=== PATIENT | female | born 1950 | race Caucasian/White ===

== ENCOUNTER 2017-04-27 08:50 | Day surgery (SDC) | payer MEDICARE, OTHER ==
[2017-04-22 11:35] VITALS: BMI 27.4
[~2017-04-27 08:50] MED LIST: LACTATED RINGERS 1,000 ML IV SCH; MOXIFLOXACIN HCL 0.5% DROPS 3 ML BTL OP ONE; TETRACAINE 0.5% OPHTH (PF) DROPS 4 ML BTL OP ONE; TIMOLOL 0.5% OPHTH SOLN (PF) 0.2 ML DROPERETTE OP ONE
[2017-04-27 09:41] VITALS: RESP 16; TEMP 97.6
[2017-04-27] MEDS: PHENYLEPHRINE 2.5% OPHTH DRP 2ML OP NR ×3 (09:53→10:08)
[2017-04-27] MEDS: CYCLOPENTOLATE 1% OPHTH SOLN 2 ML BTL OP ONE ×3 (09:56→10:10)
[2017-04-27] MEDS ORDERED: LIDOCAINE 1% 20 ML VIAL (10MG/ML) FOR IV START INTRADERMA ONE (09:57)
[2017-04-27 10:00] LABS: Glucose,Whole Blood 109 mg/dL (75-99)
[2017-04-27] MEDS ORDERED: ONDANSETRON 4 MG/2 ML VIAL ONE (10:45)
[2017-04-27] MEDS ORDERED: fentaNYL (PF) 50 MCG/ML 2 ML AMP ONE (10:45)
[2017-04-27] MEDS ORDERED: BALANCED SALT IRRIG SOLN COMB2 15 ML IRRIG.SOLN IRRIGATION ONE (10:55)
[2017-04-27] MEDS ORDERED: LIDOCAINE 1% (PF) 10MG/ML VIAL MISCELLANE ONE (10:56)
[2017-04-27] MEDS ORDERED: DUOVISC KIT (GREEN BOX) INTRAOCULA ONE (10:56)
[2017-04-27] MEDS ORDERED: TRYPAN BLUE 0.06% SYRINGE 0.5 ML SYRINGE INTRAOCULA ONE (10:57)
[2017-04-27] MEDS ORDERED: EPINEPHrine (PF) 0.3 ML in BALANCED SALT IRRIG SOLN COMB2 500 ML IRRIGATION ONE (10:58)
--- NOTE | 2017-04-27 11:25 | P.OP ---
Date of Procedure: 04/27/17 Preoperative Diagnosis: mature cataract Postoperative Diagnosis: same Procedure(s) Performed: PIOL, OS Implants: PCB00 18.50 Anesthesia: MAC Surgeon: Tavo Sales Estimated Blood Loss (ml): 0 Pathology: none sent Condition: stable Disposition: same day Indications for Procedure: blurry vision Operative Findings: No complications
[2017-04-27 11:33] LABS: Glucose,Whole Blood 103 mg/dL (75-99)
[2017-04-27 12:02] VITALS: BP 144/70; PULSE 65
--- NOTE | 2017-04-28 11:42 | OP ---
OPERATIVE REPORT DATE OF SURGERY: April 27, 2017. PROCEDURE: Phacoemulsification of cataract and intraocular lens implant of the left eye. PREOPERATIVE DIAGNOSIS: Mature cataract. POSTOPERATIVE DIAGNOSIS: Mature cataract. SURGEON: Dr. Tavo Sales. ANESTHESIA: Topical. ESTIMATED BLOOD LOSS: None. SPECIMEN TAKEN: None. NARRATIVE: After obtaining the appropriate consent, the patient was brought to the operating room. There she was placed on cardiac monitoring, prepped and draped in the usual sterile manner. She was approached from her left temporal side and at the 5 o'clock position a 1.1 mm stab blade was used to create a paracentesis port. Through this opening 1% Xylocaine MPF 50 50 mix of balanced salt solution was injected into the anterior chamber. This was followed by placement of a small air bubble into the anterior chamber. Tri hackett blue was then instilled into the anterior chamber and left in place for 2 minutes. This was irrigated away and the anterior chamber was then stabilized with Viscoat. For the temporal position at the 3 o'clock position on the eye. A 2.5 mm keratome was used to create a self-sealing corneal flap incision in a lying Jaime fashion. A cystotome was introduced to begin a continuous tear capsulorrhexis which was then completed using the Utrata forceps. Hydrodissection and hydrodelineation of the lens was accomplished with balanced salt solution. Phacoemulsification of the lens was accomplished in 2 minutes, 4 seconds at 20% power. Additional Xylocaine MPF was instilled in the anterior chamber. This was followed by removal of cortical material under irrigation and aspiration. Careful polishing was accomplished to clear the posterior capsule. Provisc was then used to stabilize the anterior chamber and an RORY PCB00 18.5 diopter posterior chamber intraocular lens was then injected into the capsular bag without difficulty. Remaining viscoelastic from in and around the intra- ocular lens as well as the anterior chamber was removed. The eye was brought to normal intraocular pressures through the paracentesis port with balanced salt solution. Care was taken to ensure a watertight integrity from both the temporal as well as paracentesis ports. She then received 2 drops of 0.5% timolol followed by 2 drops of Vigamox was then lightly patched and shielded in the usual manner. There were no complications from the procedure. She tolerated the procedure well, was returned to outpatient recovery in good condition. MMODL / IJN: [id number] /
== END 2017-04-27 12:22 | disposition home or self-care (01) ==
LOC: OR 08:50
PROVIDERS: ATTEND Ophthalmology
DX: H25.13 Age-related nuclear cataract, bilateral (principal); E11.3293 Type 2 diabetes mellitus with mild nonproliferative diabetic retinopathy without macular edema, bilateral; Z79.4 Long term (current) use of insulin; H25.043 Posterior subcapsular polar age-related cataract, bilateral; F32.9 Major depressive disorder, single episode, unspecified; I11.9 Hypertensive heart disease without heart failure; M19.90 Unspecified osteoarthritis, unspecified site; K21.9 Gastro-esophageal reflux disease without esophagitis; Z79.82 Long term (current) use of aspirin; Z79.1 Long term (current) use of non-steroidal anti-inflammatories (NSAID); Z79.899 Other long term (current) drug therapy
CPT/HCPCS: 66984; C1780; J2405; J0171; J3010; J2001

== ENCOUNTER → 2018-06-08 | Outpatient (CLI) | payer MEDICARE ==
[2018-06-08 16:49] VITALS: BP 148/67; PULSE 71; RESP 20; TEMP 96.1; BMI 34.7
--- NOTE | 2018-06-08 17:15 | P.GSHP ---
History of Present Illness H&P Date: 06/08/18 Chief Complaint: right breast core biopsy positive for cancer The patient noted her right nipple was cracked and bleeding for about one year. She was prescribed antibiotic creams on multiple occasions without resolution of the problem. She couldn't see because she had difficulty with vision, and recently she underwent cataract surgery and then noticed what her nipple looked like and then sought a mammogram. The mammogram was noted to have a 1.8 cm lesion behind the nipple. The patient states the whole breast feels hard at this time. Patient has some pain in the breast. Family History: 1. sister: breast cancer in her 30's/ recently diagnosed with endometrial cancer 2. paternal grandmother: breast cancer Hormonal History: menarche: 11 : 2, 2 children 1 , first born at age of 31, breast feed: no menopause: 42 BCP:20 years hormones: no Past Surgical History: 1. cataract surgery 2. tualigation Past Medical Hsitory: 1. diabetes 2. hyperlipidemea 3. IBS Social History: smoke: no alcohol: no drugs: no - Constitutional Constitutional: Reports sweats - EENT Comment: cataracts bilateral Ears: bilateral: tinnitus, deny: decreased hearing Ears, nose, mouth and throat: Denies headache, Denies sore throat - Breasts Breasts: bilateral: as per HPI - Cardiovascular Cardiovascular: Denies chest pain, Denies shortness of breath - Respiratory Respiratory: Denies cough, Denies 7 - Gastrointestinal Comment: IBS - Genitourinary (Female) Genitourinary: Denies dysuria, Denies hematuria - Menstruation Menstruation: Reports postmenopausal - Musculoskeletal Comment: back pain arthritis - Integumentary Integumentary: Denies pruritus, Denies rash - Neurological Neurological: Denies numbness, Denies weakness - Psychiatric Psychiatric: Reports anxiety, Reports depression - Endocrine Comment: diabetes - Hematologic/Lymphatic Comment: aspirin - Allergic/Immunologic Allergic/Immunologic: Reports seasonal allergies Past Medical History Past Medical History: Diabetes Mellitus, Hyperlipidemia Additional Past Medical History / Comment(s): IBS, History of Any Multi-Drug Resistant Organisms: None Reported Past Surgical History: Tubal Ligation Additional Past Surgical History / Comment(s): left cataract 04/27/17 Past Anesthesia/Blood Transfusion Reactions: Postoperative Nausea & Vomiting ( PONV) Smoking Status: Never smoker - Past Family History Mother Family Medical History: No Reported History Medications and Allergies Home Medications Medication Instructions Recorded Confirmed Type Atorvastatin [Lipitor] 40 mg PO HS 04/22/17 05/30/17 History DULoxetine HCL [Cymbalta] 60 mg PO DAILY 04/22/17 05/30/17 History Dicyclomine [Bentyl] 10 mg PO QID 04/22/17 05/30/17 History Lisinopril [Zestril] 20 mg PO HS 04/22/17 05/30/17 History Montelukast [Singulair] 10 mg PO DAILY PRN 04/22/17 05/30/17 History Ranitidine HCl [Zantac] 150 mg PO HS 04/22/17 05/30/17 History busPIRone HCl [Buspar] 15 mg PO TID 04/22/17 05/30/17 History Aspirin [Adult Low Dose Aspirin EC] 81 mg PO DAILY 05/30/17 05/30/17 History Insulin Glargine [Lantus] 30 unit SQ HS 05/30/17 05/30/17 History Insulin Glargine [Lantus] 36 unit SQ DAILY 05/30/17 05/30/17 History glipiZIDE [Glucotrol] 5 mg PO 1200 05/30/17 05/30/17 History Allergies Allergy/AdvReac Type Severity Reaction Status Date / Time No Known Allergies Allergy Verified 06/01/17 09:20 Surgical - Exam - General well developed, moderate distress, obese - Eyes normal ocular movement - ENT normal nares, poor longterm - Neck no masses, trachea midline - Respiratory normal respiratory effort, clear to auscultation absent: dullness, wheezing, rales - Cardiovascular Rhythm: regular Heart Sounds: normal: S1, S2 - Abdomen Abdomen: soft, non tender, no guarding, no rigid, no rebound - Integumentary good turgor - Neurologic no disoriented, no combative - Musculoskeletal kyphosis normal gait - Psychiatric oriented to time, oriented to person, oriented to place, speech is normal, memory intact breast exam: Right breast examination: The right nipple is inverted and withdrawn into an area of firmness to the nipple areolar complex. The firmness is approximately 4 cm x 3 cm in size however some of this may just be induration. Additionally at there are some skin lesions at the lateral aspect of the nipple areolar complex which are somewhat suspicious for disease to the skin. Right axilla: No adenopathy of concern Left breast: Multi-positional exam no dominant masses or nodules of concern Left axilla: No adenopathy of concern Results Mammogram report reviewed the actual films are not yet available Assessment and Plan Assessment: Impression: 1. Decreased vision requiring cataract surgery 2. Right breast mass/nipple inversion/positive invasive ductal carcinoma 2. Possible skin involvement of the malignancy Plan: 1. Skin biopsy 2. Appointment with medical oncology 3. Obtain radiographs of the breast to reviewed 4. Right breast carcinoma 5. present at tumor board I discussed the pathology with the patient and her daughter. I'm uncertain as to the actual size of the tumor and have requested that the radiographs be obtained for review. Her case will be discussed at tumor board. Additionally there is a skin lesion in the right breast for which biopsy has been recommended to rule out metastatic disease to the skin. Further recommendation to follow all of this information. Cc: Freddy
== END | disposition home or self-care (01) ==
LOC: WWCWWP 16:28
PROVIDERS: ATTEND Surgery
DX: Z53.9 Procedure and treatment not carried out, unspecified reason (principal)

== ENCOUNTER → 2018-07-11 | Day surgery (SDC) | payer MEDICARE ==
[2018-07-07 15:36] VITALS: BMI 32.0
[~2018-07-11] MED LIST changes: +DEXAMETHASONE SOD PHOS (MDV) 100 MG/10 ML VIAL IVP ONE; +HEPARIN SODIUM,PORCINE 5,000 UNIT/ML 1 ML VIAL SQ ONE; +LACTATED RINGERS 1,000 ML IV ONE; -LACTATED RINGERS 1,000 ML IV SCH; +LIDOCAINE 1% INJ 10MG/ML (20 ML MDV) SQ ONE; +MIDAZOLAM 2 MG/2 ML VIAL ONE; -MOXIFLOXACIN HCL 0.5% DROPS 3 ML BTL OP ONE; +ONDANSETRON 4 MG/2 ML VIAL IVP ONE; +PROPOFOL 10 MG/ML 20 ML VIAL IV ONE; +Pre Op ABX Message 1 EACH MISC MISCELLANE ONE; +SCOPOLAMINE 1.5MG/72HR PATCH TRANSDERM ONE; +SCOPOLAMINE 1.5MG/72HR PATCH TRANSDERM STA; -TETRACAINE 0.5% OPHTH (PF) DROPS 4 ML BTL OP ONE; -TIMOLOL 0.5% OPHTH SOLN (PF) 0.2 ML DROPERETTE OP ONE; +fentaNYL (PF) 50 MCG/ML 2 ML AMP ONE
[2018-07-11 12:36] LABS: Glucose,Whole Blood 157 mg/dL (75-99)
[2018-07-11 12:45] VITALS: TEMP 98.5
--- NOTE | 2018-07-11 13:27 | P.OP ---
Date of Procedure: 07/11/18 Preoperative Diagnosis: Skin lesions of concern for metastatic disease Postoperative Diagnosis: Same Procedure(s) Performed: Wide excision of skin lesions Anesthesia: MAC, local Surgeon: Khushboo Evans Estimated Blood Loss (ml): 3 IV fluids (ml): 100 Pathology: other (Skin with the lesion rule out metastatic disease) Condition: stable Disposition: same day Indications for Procedure: 68-year-old white female with biopsy-proven breast carcinoma with skin changes suspicious for metastatic disease in the right breast Operative Findings: Skin lesions right breast Description of Procedure: I'll is a 68-year-old white female status post core biopsy of the lesion in the right breast positive for invasive ductal carcinoma. The patient has several skin lesions suspicious for metastatic disease to the skin. Following sedation the right breast was prepped and draped in a sterile fashion. One percent lidocaine was used to anesthetize the area of the skin lesions of concern. These are in the lateral aspect of the right breast. Wide excision of the area was performed. This was carried through the skin into the subcutaneous tissue. Hemostasis was attained using electrocautery device. The length of the area was approximately 3-1/2 cm. The specimen was sent to pathology for evaluation. The skin was closed using a 4-0 Monocryl. Nylon sutures were placed following this. The patient tolerated the procedure in stable condition. All instrument and sponge counts were correct at the end of the case.
--- NOTE | 2018-07-11 13:29 | P.DS ---
Providers Attending physician: Khushboo Evans Primary care physician: Joshua Flores Plan - Discharge Summary Discharge Rx Participant: Yes New Discharge Prescriptions: No Action Montelukast [Singulair] 10 mg PO HS busPIRone HCl [Buspar] 15 mg PO TID Lisinopril [Zestril] 20 mg PO DAILY Dicyclomine [Bentyl] 10 mg PO QID DULoxetine HCL [Cymbalta] 60 mg PO DAILY Ranitidine HCl [Zantac] 150 mg PO HS Atorvastatin [Lipitor] 40 mg PO DAILY glipiZIDE [Glucotrol] 5 mg PO 1200 Insulin Lispro [humaLOG Kwikpen] 26 unit SQ 0600,1800 traZODone HCL 150 mg PO HS Discharge Medication List Atorvastatin [Lipitor] 40 mg PO DAILY 04/22/17 [History] DULoxetine HCL [Cymbalta] 60 mg PO DAILY 04/22/17 [History] Dicyclomine [Bentyl] 10 mg PO QID 04/22/17 [History] Lisinopril [Zestril] 20 mg PO DAILY 04/22/17 [History] Montelukast [Singulair] 10 mg PO HS 04/22/17 [History] Ranitidine HCl [Zantac] 150 mg PO HS 04/22/17 [History] busPIRone HCl [Buspar] 15 mg PO TID 04/22/17 [History] glipiZIDE [Glucotrol] 5 mg PO 1200 05/30/17 [History] Insulin Lispro [humaLOG Kwikpen] 26 unit SQ 0600,1800 06/08/18 [History] traZODone HCL 150 mg PO HS 07/07/18 [History] Follow up Appointment(s)/Referral(s): Khushboo Evans MD [STAFF PHYSICIAN] - 1 Week Patient Instructions/Handouts: *Surgery [facility] - Scopalamine Patch Instructions Activity/Diet/Wound Care/Special Instructions: do not drive today may shower after 48 hours Discharge Disposition: HOME SELF-CARE
[2018-07-11 13:38] VITALS: RESP 16
[2018-07-11 13:56] LABS: Glucose,Whole Blood 159 mg/dL (75-99)
[2018-07-11 14:03] VITALS: BP 120/52; PULSE 70
== END | disposition home or self-care (01) ==
LOC: OR 12:07
PROVIDERS: ATTEND Surgery
DX: C50.911 Malignant neoplasm of unspecified site of right female breast (principal); Z80.3 Family history of malignant neoplasm of breast; I10 Essential (primary) hypertension; E78.49 Other hyperlipidemia; E11.9 Type 2 diabetes mellitus without complications; Z80.49 Family history of malignant neoplasm of other genital organs; E78.5 Hyperlipidemia, unspecified; F41.9 Anxiety disorder, unspecified; F32.9 Major depressive disorder, single episode, unspecified; K21.9 Gastro-esophageal reflux disease without esophagitis; Z79.4 Long term (current) use of insulin; Z79.899 Other long term (current) drug therapy; Z79.82 Long term (current) use of aspirin
CPT/HCPCS: 19120; 88305; 88342; 88341; J2250; J1644; J2405; J2001; J3010; J1100; J2704

== ENCOUNTER → 2018-07-21 | Outpatient (CLI) | payer MEDICARE ==
[2018-07-21 16:43] VITALS: BP 124/73; PULSE 78; RESP 16; TEMP 97.5; BMI 36.0
--- NOTE | 2018-07-21 17:31 | P.PN ---
Progress Note - Text Progress Note Date: 07/21/18 Edyta is a 68-year-old white female who was diagnosed with an invasive right breast cancer from her core biopsy on 1230 118. She also had low-grade DCIS. The patient had skin lesions of concern and underwent a biopsy of the skin lesions on 120 219. These were also positive for well-differentiated ductal breast carcinoma. The patient is scheduled for PET scan tomorrow. The patient is being scheduled for an appointment with medical oncology. She is brought to the office today by her sister who relates that she has been diagnosed with a limb-girdle muscular dystrophy. She tells us that this is a genetic condition and that it may be necessary for Edyta to be tested for this as well. Edyta has not been tested for this. Physical exam: Incision clean and dry, sutures removed Steri-Strips applied Impression; 1. Right breast invasive carcinoma [id number]/SOLEDAD- STAGE IIIB Plan: 1. PET scan scheduled for tomorrow 2. Appointment with medical oncology 3. Follow-up. 2 weeks Cc:
== END ==
LOC: WWCWWP 16:22
PROVIDERS: ATTEND Surgery
DX: Z53.9 Procedure and treatment not carried out, unspecified reason (principal)

== ENCOUNTER → 2018-07-22 | Outpatient (CLI) | payer MEDICARE ==
--- NOTE | 2018-07-22 14:26 | PE ---
EXAMINATION TYPE: PET CT fusion skull to thigh DATE OF EXAM: 07/22/2018 COMPARISON: Outside mammogram April 12, 2018 and outside ultrasound guided core biopsy May 17, 2018 HISTORY: Right-sided breast cancer initial staging study after biopsy May 17, 2018. TECHNIQUE: Following the intravenous administration of 12.03 mCi of F-18 FDG, whole body images are performed from the skull base to the midthigh. Images are reviewed on the computer in the coronal, a xial, and sagittal planes. Reconstructed rotating images are created on independent workstation and reviewed on the computer. A noncontrast CT is performed in conjunction with the PET scan. SCAN: Outside mammogram April 12, 2018 FINDINGS: SKULL BASE AND NECK: No suspicious hypermetabolic uptake is present. Mild symmetric uptake at level of vocal cords is felt to reflect product of phonation. CHEST, MEDIASTINUM, AND HILAR REGION: Corresponding to mammogram and ultrasound there is slight hyper metabolic focus with nipple inversion, max SUV 2.42 subareolar region right breast axial image 98. No additional hypermetabolic masses in either breast are identified. No concerning axillary adenopathy is seen. Remainder thorax shows no suspicious hypermetabolic uptake. ABDOMEN AND PELVIS: No suspicious hypermetabolic uptake is seen in the abdomen or pelvis. OSSEOUS STRUCTURES: No suspicious hypermetabolic uptake in osseous structures is present. OTHER CT: Moderate coronary artery calcification is present which is noted marker for coronary artery disease. Rim calcified gallbladder or porcelain type gallbladder is noted. Surgical referral advised as there is increased risk for gallbladder carcinoma in such patient. 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 Some areas of focal cortic al thinning in the left kidney are present. There is low dense 2.6 cm left adrenal mass Hounsfield units less than 10 consistent with benign lipi d rich adenoma. There is exophytic calcified right subserosal fibroid felt present Moderate calcified plaque of aorta extends into branch vessels, aorta is overall small caliber. Measu ring 5.7 x 5.1 cm axial image 205. Slight grade 1 anterolisthesis L3 on L4 is noted. IMPRESSION: Poor visualization of biopsy-proven subareolar malignancy right breast. No metastatic mal ignancy is evident.
== END | disposition home or self-care (01) ==
LOC: RADPETMAIN 09:55
PROVIDERS: ATTEND Surgery
DX: C50.111 Malignant neoplasm of central portion of right female breast (principal)
CPT/HCPCS: 78815; A9552

== ENCOUNTER → 2018-08-25 | Outpatient (CLI) | payer MEDICARE ==
[2018-08-25 13:34] VITALS: BP 139/69; PULSE 69; RESP 18; TEMP 97.8; BMI 36.3
--- NOTE | 2018-08-25 13:48 | P.PN ---
Subjective Progress Note Date: 08/25/18 Principal diagnosis: right breast cancer Edyta is a 68-year-old white female who was diagnosed with invasive right breast cancer from a core biopsy in [id number]. The patient also had skin lesions of concern and underwent a skin biopsy on . The skin biopsy was positive f or well-differentiated ductal breast cancer. The patient had a PET scan performed which did not show evidence of metastatic disease. The patient also had a BRCA1 test performed and we are awaiting results of that test. The patient was seen by medical oncology and told that she was ready for surgery. The patient had noted her right nipple had become cracked and was bleeding for approximately a year. She was prescribed antibiotic cream some multiple occasions without resolution of the problem. She couldn't see because she has difficulty with vision and recently underwent cataract surgery. Following the Surgery she noticed that her nipple looked abnormal and at that time a mammogram was performed. The mammogram was noted to have a 1.8 cm lesion behind the nipple. The patient states the whole breast then began to fill heart. At that point the patient had been seen core biopsy was done and skin biopsy as stated. Additionally appointment with medical oncology was made and at this time we are waiting BRCA1 test results. If BRCA1 is positive then the recommendation is for bilateral mastectomy. Family history: 1. Sr.: Breast cancer in her 30s recently diagnosed with endometrial cancer 2. Paternal grandmother: Breast cancer Hormonal history: Menarche: 11 Diagnosis: 2, 2 children one this point at the age of 31 did not breast- feed. Menopause: 42 Postoperative control past: 20 years Hormones: Negative Past surgical history: 1. Cataract surgery 2. Tubal ligation Past medical history 1. Diabetes 2. Hyperlipidemia 3. Irritable bowel syndrome Social history: Smoke: Negative Alcohol: Negative Drugs: Negative Review of systems: HEENT: Bilateral cataracts surgery Uterus: Bilateral tinnitus Breasts: As stated in HPI Cardiovascular: Negative Respiratory: Negative GI: Irritable bowel syndrome : Negative Menstruation: Postmenopausal Musculoskeletal: Back pain Integument: Positive biopsy of the skin for cancer Neurologic: Denies numbness or weakness Psychiatric: Negative Hematologic: Patient used to take aspirin Objective - Vital Signs Vital signs: Intake & Output 08/24/18 08/25/18 08/25/18 18:59 06:59 18:59 Weight 90.265 kg - Exam BMI 36.4 - Constitutional General appearance: Present: obese - EENT Eyes: Present: EOMI ENT: Present: hearing grossly normal - Neck Neck: Present: normal ROM - Respiratory Respiratory: - Cardiovascular Rhythm: regular Heart sounds: - Gastrointestinal General gastrointestinal: Present: soft - Integumentary Integumentary Comment(s): skin lesions right breast Integumentary: Present: normal turgor - Musculoskeletal Musculoskeletal: Present: gait normal - Psychiatric Psychiatric: Present: A&O x's 3, appropriate affect, intact judgment & insight - Additional findings Additional findings: Right breast: Enlarged mass posterior to the nipple causing nipple retraction, biopsy proven invasive ductal carcinoma as well as some skin changes which have been biopsied and a positive for of skin involvement Right axilla: Enlarged right axillary nodes Left breast: Multiple positional exam no dominant masses or nodules of concern Left axilla: No adenopathy of concern Assessment and Plan Assessment: Impression: 1. [id number] BX positive HER-2 negative grade 1 right breast cancer 2. Diabetes 3. irritable bowel syndrome 4 hyperlipidemia Plan: 1. We are awaiting BRCA testing 2. Right mastectomy with axillary node dissection patient is not felt to be a candidate for preoperative neoadjuvant chemotherapy as per medical oncology 3. Medical clearance CC: DR. Flores
== END | disposition home or self-care (01) ==
LOC: WWCWWP 13:20
PROVIDERS: ATTEND Surgery
DX: Z53.9 Procedure and treatment not carried out, unspecified reason (principal)

== ENCOUNTER 2018-09-26 06:28 | Day surgery (SDC) | payer MEDICARE ==
--- NOTE | 2018-09-22 18:00 | P.PN ---
Subjective Progress Note Date: 09/22/18 Principal diagnosis: Invasive right breast cancer Edyta is a 68-year-old white female who was diagnosed with an invasive right breast cancer from a core biopsy in May 2018. The patient also had skin lesions of concern and it went a skin biopsy on 07/11/2018. The skin biopsy was positive for well-differentiated ductal breast cancer. The patient had a PET scan performed which did not show any evidence of metastatic disease. The patient also had a BRCA1 test performed which was negative. The patient was seen by medical oncology and it was felt that there was no benefit to neoadjuvant chemotherapy and wished to proceed with a mastectomy. The patient had noted her right nipple had become cracked and was bleeding for approximately a year prior to being seen. She had been prescribed antibiotic ointment without resolution of the problem. She states she couldn't see because she had difficulty with her vision and recently underwent cataract surgery. Following the surgery she knows that her nipple looked more abnormal and at that time a mammogram was performed. The mammogram was noted to have a 1.8 cm lesion behind the nipple. The patient states her breast and began to fill from. That point the patient had a core biopsy and the diagnosis of the br east cancer was made. Family history: 1. Sr.: Breast cancer in her 30s recently diagnosed with endometrial cancer 2. Paternal grandmother: Breast cancer Hormonal history: Menarche: 11 : 2, 2 children Menopause: 42 Past surgical history: 1. Cataract surgery 2. Tubal ligation Past medical history: Diabetes Hyperlipidemia Irritable bowel syndrome Social history: Smoking: Negative Alcohol: Negative Drugs: Negative Review of systems: HEENT: Bilateral cataracts surgery Lungs: Negative Heart: Negative GI: Irritable bowel syndrome : Negative Musculoskeletal: Back pain Breasts: As per HPI Objective - Constitutional Constitutional Comment(s): BMI 37.7 General appearance: Present: obese - EENT Eyes: Present: EOMI ENT: Present: hearing grossly normal - Neck Neck: Present: normal ROM - Respiratory Respiratory: bilateral: CTA - Cardiovascular Rhythm: regular Heart sounds: normal: S1, S2 - Gastrointestinal General gastrointestinal: Present: soft - Integumentary Integumentary Comment(s): Skin lesions right breast - Musculoskeletal Musculoskeletal: Present: gait normal - Psychiatric Psychiatric: Present: A&O x's 3, appropriate affect, intact judgment & insight - Additional findings Additional findings: Breast examination: Right breast: Enlarged mass posterior to the nipple causing nipple retraction, biopsy proven ductal carcinoma as well as skin changes which have been biopsied and positive for skin cancer Right axilla: Enlarged right axillary nodes Left breast: Multi-positional exam no dominant masses or nodules of concern Left axilla no adenopathy of concern Assessment and Plan Assessment: Impression/plan: 1. T4 N1 M0 ER CO positive HER-2/teena negative grade 1 right breast cancer 2. Diabetes 3. Irritable bowel syndrome 4. Hyperlipidemia 5. BRCA1 testing negative 6. Positive family history of cancer 7. At this time the patient has no evidence of metastatic disease via PET scan A long discussion with the patient and her family regarding the need for mastectomy and sentinel node biopsy possible axillary node dissection. The patient also wishes to undergo a left mastectomy. She is aware that I do not believe this is any tumor in the left breast at this time and despite this she wishes a left breast mastectomy. The patient is not interested in reconstruction. She is offered consultation with plastic surgery and has refused at this time. Plan: 1. Right breast mastectomy with sentinel node biopsy possible axillary node dissection 2. Left mastectomy CC: Dr. Flores
[~2018-09-26 06:28] MED LIST changes: -DEXAMETHASONE SOD PHOS (MDV) 100 MG/10 ML VIAL IVP ONE; +DEXAMETHASONE SOD PHOSPHATE 10 MG/ML 1 ML VIAL IV ONE; -LACTATED RINGERS 1,000 ML IV ONE; +LACTATED RINGERS 1,000 ML IV SCH; +LIDOCAINE 1% 20 ML VIAL (10MG/ML) FOR IV START INTRADERMA PRN; -LIDOCAINE 1% INJ 10MG/ML (20 ML MDV) SQ ONE; +MIDAZOLAM (PF) 2 MG/2 ML VIAL IV PRN; -MIDAZOLAM 2 MG/2 ML VIAL ONE; -PROPOFOL 10 MG/ML 20 ML VIAL IV ONE; -SCOPOLAMINE 1.5MG/72HR PATCH TRANSDERM ONE; -SCOPOLAMINE 1.5MG/72HR PATCH TRANSDERM STA; +fentaNYL (PF) 50 MCG/ML 2 ML AMP IV PRN; -fentaNYL (PF) 50 MCG/ML 2 ML AMP ONE
[2018-09-26] MEDS ORDERED: ALPRAZolam 0.25 MG TAB PO ONE (07:15)
[2018-09-26 07:34] LABS: Glucose,Whole Blood 205 mg/dL (75-99)
--- NOTE | 2018-09-26 08:08 | NM ---
EXAMINATION TYPE: NM sentinel node injection DATE OF EXAM: 09/26/2018 COMPARISON: NONE HISTORY: Right breast cancer TECHNIQUE AND FINDINGS: The procedure of sentinel lymph node injection was explained to the patient. The benefits, alternatives, and risks were discussed. An informed consent was then obtained. Overlying skin is cleaned with sterile alcohol. Following this, 562 uCi Tc99m Tilmanocept was inject ed in the upper outer aspect of the 9 o'clock position nipple intradermally. The patient tolerated the procedure well without any immediate complication. The patient was kept in the radiology department for short stay after the procedure and then taken to surgery for surgical p rocedure what is presumed intraoperative gamma probe will be used for sentinel lymph node detection. IMPRESSION: Right breast radiotracer injection for sentinel node localization as above.
[2018-09-26] MEDS ORDERED: PROPOFOL 10 MG/ML 20 ML VIAL IV ONE (09:01)
[2018-09-26] MEDS ORDERED: HYDROmorphone (PF) 1 MG/ML ONE (09:01)
[2018-09-26] MEDS ORDERED: LABETALOL 5 MG/ML VIAL MDV ONE (09:01)
[2018-09-26] MEDS ORDERED: LIDOCAINE 1% INJ 10MG/ML (20 ML MDV) ONE (09:01)
[2018-09-26] MEDS ORDERED: fentaNYL (PF) 50 MCG/ML 2 ML AMP ONE (09:01)
[2018-09-26] MEDS ORDERED: MIDAZOLAM 2 MG/2 ML VIAL ONE (09:01)
[2018-09-26] MEDS ORDERED: SUCCINYLCHOLINE CHLORIDE 100 MG/5 ML SYR IV ONE (09:01)
[2018-09-26] MEDS ORDERED: GLYCOPYRROLATE 0.2 MG/ML 2 ML VIAL ONE (09:01)
[2018-09-26] MEDS ORDERED: HEPARIN SODIUM,PORCINE 5,000 UNIT/ML 1 ML VIAL SQ ONE (09:13)
--- NOTE | 2018-09-26 09:17 | P.NAPBC ---
[facility] - [facility] Was patient's case review presented at [facility] tumor board? If no, comment.: Yes Was patient's pathology reviewed at [facility]? If no, comment.: Yes Was breast conservation surgery offered? If no, comment.: No (advanced disease right breast) Was sentinel node biopsy offered? If no, comment.: Yes Was diagnosis confirmed by percutaneous core biopsy? If no, comment.: Yes If mastectomy patient, was a preop referral to a reconstructive surgeon offered?: Yes (offered patient declined) [facility] Comments: patient adamant about bilateral mastectomy, told will not improve prognosis, or survival, patient understands and still wants bilateral mastectomy Clinical Stage: [id number]/AZ+ Her2/Cleopatra-, Grade1
[2018-09-26] MEDS ORDERED: SODIUM CHLORIDE 0.9% 50 ML with ceFAZolin (PMX-bag) 2,000 MG IV ONE ×2 (09:31)
[2018-09-26] MEDS ORDERED: LACTATED RINGERS 1,000 ML IV ONE ×2 (09:55→15:00)
[2018-09-26] MEDS ORDERED: ONDANSETRON 4 MG/2 ML VIAL IVP PRN (13:25)
[2018-09-26] MEDS ORDERED: NALOXONE 0.4 MG/ML 1 ML VIAL IV PRN (13:25)
[2018-09-26] MEDS ORDERED: HYDROcodone/APAP 5-325MG 1 EACH TAB PO PRN (13:25)
[2018-09-26] MEDS ORDERED: HYDROmorphone 1 MG/ML 1 ML SYRINGE IV PRN (13:25)
[2018-09-26] MEDS ORDERED: CALCIUM CARBONATE 500 MG CHEWABLE PO PRN (13:25)
--- NOTE | 2018-09-26 13:25 | P.OP ---
Date of Procedure: 09/26/18 Preoperative Diagnosis: Right breast cancer Postoperative Diagnosis: Same Procedure(s) Performed: Right mastectomy, right sentinel node biopsy, right axillary node dissection, left simple mastectomy Anesthesia: SUNIL Surgeon: Khushboo Evans Estimated Blood Loss (ml): 150 IV fluids (ml): 1,200 Urine output (ml): 320 Pathology: other (Bilateral breast, right sentinel node biopsy, axillary node dissection right) Condition: stable Disposition: PACU Indications for Procedure: Right breast cancer Operative Findings: Right breast cancer, positive axillary node on the right, left breast dense tissue Description of Procedure: The patient is a 68-year-old white female who presented with a T4 right breast cancer. She was seen by medical oncology and recommended to undergo surgical intervention prior to treatment by medical oncology. After discussion the patient has opted for a right mastectomy, right sentinel node biopsy, possible right axillary node dissection, and left simple mastectomy. The patient and her family understand the risk and benefits and she wishes to proceed. She was not recommended to undergo a left breast mastectomy, she was told that this will not improve any survival benefit but she insists that she wants bilateral mastectomies. She does not want any plastic surgical intervention. The patient was taken to the operating room and both breasts in the right axilla were prepped and draped in a sterile fashion. The right side was approached initially. A marking pen was utilized to mary the skin where the incision should be performed. Superior and inferior skin flaps were developed. These were developed using a electrocautery device. Dissection was performed superiorly down to the chest wall. The inferior skin flap was then developed with dissection performed using the electrocautery device down to the chest wall. The breast was taken from medial to lateral being careful to maintain hemostasis using the electrocautery device as well as the Harmonic scalpel. The breast was removed. A short suture was placed superior and a long suture lateral. The mastectomy site was irrigated and any oozing was cauterized using the electrocautery device. The right axilla was interrogated using the neoprobe. A radioactive node was identified the 10 second count on this was 150. The node was excised and sent to pathology for evaluation. This was positive for malignancy. A formal axillary dissection was performed. The pectoralis minor muscle was followed superiorly to the axillary vein. The tissues were swept inferiorly being careful to identify and preserve the thoracodorsal and long thoracic nerves. Several intercostal brachial nerves and vessels were removed during the dissection. Following this the wound was again well irrigated. After we were assured that hemostasis was attained 2 BRIGITTE drains were placed. One was placed in the axilla and one was placed under the skin flaps. Surgicel in powder form was applied. The drains were secured using a nylon suture. The subcutaneous tissues were closed with a 3-0 Vicryl suture, followed by 4-0 Monocryl skin suture. Steri-Strips were applied. The drains held suction with no evidence of any active bleeding. The left breast was then approached. This was done after all instruments were changed. The surgeon's gown and gloves were changed as well. The left breast skin flaps were marked with a marking pen. A scalpel was used to form the superior skin flap. Dissection was performed for this side using a blunt scissors. Tracks performed superiorly along the plane for dissection and this scissors were then opened forming the superior flap. The flap was grasped using skin hooks and any bridging tissue was divided using the electrocautery device. Hemostasis was attained using electrocautery device as well as the Harmonic scalpel. The inferior flap was formed in a similar fashion. The skin was divided using a scalpel. A electrocautery was used to make the initial cut into the subcutaneous tissue and began to develop the flap. A blunt scissors with a was then used to form perforations below the skin between the breast and skin. The bridging tissues were divided using the open scissors. The skin was then elevated using skin hooks. Electrocautery device was used to divide any bridging tissues. After assured that hemostasis was attained the breast was removed from medial to lateral using electrocautery device as well as the Harmonic scalpel for hemostasis. The breast was then removed. The mastectomy site was examined for hemostasis. When we were assured that this was attained it was well irrigated. Surgicel in powder form was applied. 2 BRIGITTE drains were placed. The drains were secured using a nylon suture. The subcutaneous tissues were closed using a 3-0 Vicryl suture. This was followed by a 4-0 Monocryl skin suture. Steri-Strips were applied. The patient tolerated the procedure in stable condition. All instrument and sponge counts were correct at the end of the case. Intraoperatively the patient had an episode in which she seemed to shiver. Anesthesia was called to the room and the patient was evaluated. The patient was noted to be hemodynamically stable, and afebrile. And she will be followed closely for this in the postoperative area.
[2018-09-26 13:27] LABS: Glucose,Whole Blood 330 mg/dL (75-99)
[2018-09-26] MEDS ORDERED: INSULIN ASPART (NovoLOG) 100 UNIT/ML VIAL SQ ONE (13:46)
[2018-09-26 13:49] LABS: Glucose,Whole Blood 368 mg/dL (75-99)
[2018-09-26 14:22] LABS: Basophils % (A) 0 %; Eosinophils % (A) 0 %; Lymphocytes # (A) 0.7 k/uL (1.0-4.8); Lymphocytes % (A) 6 %; MCH 25.4 pg (25.0-35.0); MCHC 31.5 g/dL (31.0-37.0); MCV 80.5 fL (80.0-100.0); Monocytes # (A) 0.3 k/uL (0-1.0); Monocytes % (A) 2 %; Neutrophils # (A) 11.7 k/uL (1.3-7.7); Neutrophils % (A) 91 %; Platelet Count 230 k/uL (150-450); RBC 4.35 m/uL (3.80-5.40); RDW 13.4 % (11.5-15.5); WBC 12.8 k/uL (3.8-10.6)
[2018-09-26] MEDS ORDERED: HYDROmorphone 1 MG/ML 1 ML SYRINGE IVP ONE ×2 (14:32→14:45)
[2018-09-26 14:56] LABS: Glucose,Whole Blood 363 mg/dL (75-99)
[2018-09-26 15:26] LABS: Glucose,Whole Blood 321 mg/dL (75-99)
[2018-09-26 17:05] LABS: Glucose,Whole Blood 300 mg/dL (75-99)
[2018-09-26] MEDS: DEXTROSE 5%-0.45% NACL 1,000 ML IV SCH (18:30)
[2018-09-26] MEDS: HEPARIN SODIUM,PORCINE 5,000 UNIT/ML 1 ML VIAL SQ SCH ×2 (18:31→23:21)
[2018-09-26] MEDS: INSULIN ASPART (NovoLOG) 100 UNIT/ML VIAL SQ SCH ×2 (18:32→21:37)
[2018-09-26 19:55] VITALS: BMI 35.9
[2018-09-26 20:40] LABS: Glucose,Whole Blood 319 mg/dL (75-99)
[2018-09-26] MEDS ORDERED: INSULIN ASPART (NovoLOG) 100 UNIT/ML VIAL SQ SCH (21:00)
[2018-09-26] MEDS: FAMOTIDINE 20 MG TAB PO SCH (21:36)
[2018-09-26] MEDS: traZODone HCL 100 MG TAB PO SCH (21:37)
[2018-09-26] MEDS: busPIRone HCl 10 MG TAB PO SCH (21:39)
[2018-09-26] MEDS: DICYCLOMINE 10 MG CAP PO SCH (21:40)
[2018-09-27] MEDS: DEXTROSE 5%-0.45% NACL 1,000 ML IV SCH ×3 (04:00→21:15)
[2018-09-27 07:06] LABS: Glucose,Whole Blood 361 mg/dL (75-99)
[2018-09-27 07:46] LABS: Basophils % (A) 0 %; Eosinophils % (A) 0 %; HCT 30.5 % (34.0-46.0); HGB 9.8 gm/dL (11.4-16.0); Lymphocytes # (A) 1.3 k/uL (1.0-4.8); Lymphocytes % (A) 14 %; MCH 26.4 pg (25.0-35.0); MCHC 32.3 g/dL (31.0-37.0); MCV 81.9 fL (80.0-100.0); Monocytes # (A) 0.6 k/uL (0-1.0); Monocytes % (A) 6 %; Neutrophils # (A) 7.3 k/uL (1.3-7.7); Neutrophils % (A) 77 %; Platelet Count 213 k/uL (150-450); RBC 3.72 m/uL (3.80-5.40); RDW 13.4 % (11.5-15.5); WBC 9.4 k/uL (3.8-10.6)
--- NOTE | 2018-09-27 08:11 | CONS ---
CONSULTATION DATE OF CONSULTATION: 09/26/2018 REASON FOR CONSULTATION: Medical management requested by Dr. Christianne Evans. CONSULTATION: This is a very pleasant 68-year-old patient who follows with Dr. Flores. Chronic stable medical conditions include diabetes, GERD, hypertension, hyperlipidemia, osteoarthritis. The patient was diagnosed with T4 right breast cancer. She was seen by medical oncology, told to undergo surgical intervention prior to further treatment. The patient underwent bilateral mastectomy and right sentinel node biopsy and possible right axillary node dissection and latter which was carried out. Postprocedure, pain is controlled, very slight nausea. Did tolerate a meal. Lying in bed. REVIEW OF SYSTEMS: CONSTITUTIONAL: None. HEENT: None. RESPIRATORY: None. CARDIOVASCULAR: None. GASTROINTESTINAL: Heartburn. GENITOURINARY: None. MUSCULOSKELETAL: Arthritic pain in joints. DERMATOLOGICAL: None. HEMATOLOGICAL: None. LYMPHATICS: None. PSYCHIATRY: Anxiety, depression, controlled. NEUROLOGICAL: None. PAST MEDICAL HISTORY: Past medical history of diabetes GERD, hyperlipidemia, hypertension, osteoarthritis, irritable bowel syndrome, anxiety, depression, breast cancer. PAST SURGICAL HISTORY: Bilateral cataract, skin lesions right breast. PSYCH HISTORY: Anxiety, depression. SOCIAL HISTORY: Does not smoke or drink alcohol. . FAMILY HISTORY: Breast and female cancer, DVT. HOME MEDICATIONS: 1. Trazodone 150 mg q.h.s. 2. Glucotrol 5 mg p.o. daily. 3. Buspirone 15 mg p.o. t.i.d. 4. Zantac 150 mg b.i.d. 5. Zestril 20 mg p.o. daily. 6. NovoLog Mix 75/25, 26 units subcutaneous b.i.d. 7. Bentyl 20 mg p.o. q.i.d. 8. Cymbalta 60 mg p.o. daily. 9. Lipitor 40 mg p.o. daily. ALLERGIES: Allergies to GLUCOPHAGE, MOTRIN, side effects. PHYSICAL EXAMINATION: On examination, temperature 98.1 pulse 91, respiration 15, blood pressure 117/70, pulse ox 95% on 3 L. GENERAL APPEARANCE: Well built, BMI 37.7. Lying in bed, awake. EYES: Pupils equal. Conjunctivae normal. HENT: External appearance of nose and ears normal. Oral cavity normal. NECK: JVD not raised. Mass not palpable. RESPIRATORY: Effort normal. LUNGS: Fair entry. CARDIOVASCULAR: First and second sounds normal. No edema. ABDOMEN: Soft, nontender. Liver and spleen not palpable. LYMPHATIC: No lymph nodes palpable in the neck. PSYCHIATRY: Alert and oriented x3. Mood and affect normal. NEUROLOGICAL: Pupils equal. Cranial nerves grossly intact. Power and sensation grossly intact. CHEST WALL: Got a dressing in place. MUSCULOSKELETAL: Evidence of OA especially in the fingers. INVESTIGATIONS: White count 12.8, hemoglobin 11, platelets 230. Accu-Cheks are noted. ASSESSMENT: 1. Bilateral mastectomy, right axillary node dissection and sentinel node biopsy for breast cancer. 2. Diabetes mellitus type 2, chronically on insulin. 3. Gastroesophageal reflux disease. 4. Hyperlipidemia. 5. Essential hypertension. 6. Primary osteoarthritis. 7. Irritable bowel syndrome. 8. Obesity; body mass index 37.7. 9. Anxiety and depression, not otherwise specified. PLAN: Home medications are resumed. Accu-Cheks to be closely followed. Pain control per Dr. Christianne Evans. Please also add Venodyne boots. Care was discussed with the patient. Questions were answered. Thank you Dr. Christianne Evans. MMODL / IJN: [id number] /
[2018-09-27] MEDS: busPIRone HCl 10 MG TAB PO SCH ×3 (08:24→21:13)
[2018-09-27] MEDS: DICYCLOMINE 10 MG CAP PO SCH ×4 (08:25→21:12)
[2018-09-27] MEDS: HEPARIN SODIUM,PORCINE 5,000 UNIT/ML 1 ML VIAL SQ SCH ×3 (08:25→23:58)
[2018-09-27] MEDS: INSULN ASP PRT/INSULIN ASPART 100 UNIT/ML 10 ML VIAL SQ SCH ×3 (08:25→21:15)
[2018-09-27] MEDS: FAMOTIDINE 20 MG TAB PO SCH ×2 (08:25→21:12)
[2018-09-27] MEDS: LISINOPRIL 20 MG TAB PO SCH (08:25)
[2018-09-27] MEDS: DULoxetine HCL 60 MG CAPSULE.DR PO SCH (08:25)
[2018-09-27] MEDS: ATORVASTATIN 40 MG TAB PO SCH (08:25)
[2018-09-27] MEDS: glipiZIDE 5 MG TAB PO SCH (08:25)
[2018-09-27] MEDS: INSULIN ASPART (NovoLOG) 100 UNIT/ML VIAL SQ SCH ×4 (08:26→21:14)
[2018-09-27 11:48] LABS: Glucose,Whole Blood 348 mg/dL (75-99)
[2018-09-27 14:37] LABS: Hemoglobin A1C 7.7 % (4.0-6.0)
[2018-09-27 17:15] LABS: Glucose,Whole Blood 288 mg/dL (75-99)
--- NOTE | 2018-09-27 17:20 | P.PN ---
Subjective Principal diagnosis: Invasive right breast cancer Edyta is a 68-year-old white female who is postop day #1 from bilateral mastectomy with right axillary node dissection. She is a known diabetic and postprocedure she was hyperglycemic. Her most recent hemoglobin was 288. One of her BRIGITTE drains on the left side anteriorly was noted to not be holding suction well. I will put however appears to be serous in nature bilaterally. right anterior 40, right posterior 50, left anterior 30, left posteriorr 20. The patient is tolerating her diet without difficulty. Her pain is under control. Objective - Vital Signs Vital signs: Vital Signs Temp 98.3 F 09/27/18 15:00 Pulse 66 09/27/18 15:00 Resp 17 09/27/18 15:00 BP 102/63 09/27/18 15:00 Pulse Ox 97 09/27/18 15:00 Intake & Output 09/26/18 09/27/18 09/27/18 18:59 06:59 18:59 Intake Total 2200 200 720 Output Total 350 400 Balance 1850 -200 720 Intake: IV 2200 Oral 200 720 Output: Drainage 0 Left Lateral Chest 0 Left Medial Chest 0 Right Lateral Chest 0 Right Medial Chest 0 Urine 350 400 Other: # Voids 1 3 - Exam BMI 37.7 - Constitutional General appearance: Present: obese - EENT Eyes: Present: EOMI ENT: Present: hearing grossly normal - Neck Neck: Present: normal ROM - Respiratory Respiratory: bilateral: CTA - Cardiovascular Rhythm: regular Heart sounds: normal: S1, S2 - Integumentary Integumentary: Present: normal turgor - Psychiatric Psychiatric: Present: A&O x's 3, appropriate affect, intact judgment & insight - Additional findings Additional findings: Incisions clean and dry bilaterally. BRIGITTE drains were all assessed. The left anterior BRIGITTE drain was not holding suction well. The ability to maintain suction seemed to be dependent on the area of the dressing, and there appeared to be a l arge opening where the drain was exiting the skin. - Labs CBC & Chem 7: 09/27/18 06:56 Labs: Abnormal Lab Results - Last 24 Hours (Table) 09/26/18 09/27/18 09/27/18 Range/Units 20:10 06:53 06:56 RBC (3.80-5.40) m/uL Hgb (11.4-16.0) gm/dL Hct (34.0-46.0) % POC Glucose (mg/dL) 319 H 361 H (75-99) mg/dL Hemoglobin A1c 7.7 H (4.0-6.0) % 09/27/18 09/27/18 Range/Units 06:56 11:36 RBC 3.72 L (3.80-5.40) m/uL Hgb 9.8 L (11.4-16.0) gm/dL Hct 30.5 L (34.0-46.0) % POC Glucose (mg/dL) 348 H (75-99) mg/dL Hemoglobin A1c (4.0-6.0) % Assessment and Plan Assessment: Impression/plan: 1. T4 N1 M0 ER SC positive HER-2/teena negative grade 1 right breast cancer 2. Diabetes 3. Irritable bowel syndrome 4. Hyperlipidemia 5. BRCA1 testing negative 6. Positive family history of cancer 7. At this time the patient has no evidence of metastatic disease via PET scan 8. Postoperative day #1 bilateral mastectomy with right axillary node dissection Plan: 1. Right breast mastectomy with sentinel node biopsy possible axillary node dissection POD #1 2. Left mastectomy POD #1 3. Suction not holding well on the left anterior drain 4. Hyperglycemia/care as per Dr. Butler 5. CBC in a.m. The reason for the drain with poor suction was discussed with the patient. It was felt that the problem was a patulous opening where the drain exited the skin. It was recommended that at bedside this be prepped and a suture be placed to tighten the skin. The patient was in agreement. Risk and benefits were discussed with the patient. Signed consent was obtained. The area of the skin around the drain was prepped using Betadine. One percent lidocaine was used to anesthetize the area of the skin. A 2-0 nylon suture was placed and the patulous opening was closed and the drain was resecured. A second suture was placed to tighten the area near the more posterior drain. The patient tolerated the procedure in stable condition. At the termination of the procedure the drain seemed to hold suction without difficulty. CC: Dr. Flores
[2018-09-27] MEDS ORDERED: HYDROcodone/APAP 5-325MG 1 EACH TAB PO PRN (17:26)
[2018-09-27 20:42] LABS: Glucose,Whole Blood 286 mg/dL (75-99)
[2018-09-27] MEDS: traZODone HCL 100 MG TAB PO SCH (21:14)
[2018-09-28] MEDS: DEXTROSE 5%-0.45% NACL 1,000 ML IV SCH (04:24)
--- NOTE | 2018-09-28 06:43 | PN ---
PROGRESS NOTE DATE OF SERVICE: 09/27/2018 PRESENTING COMPLAINT: Bilateral mastectomy. INTERVAL HISTORY: This patient was seen by me yesterday afternoon. Status post bilateral breast mastectomy. Pain is controlled. Drainage in place. Sugars have been running high. Otherwise, tolerating a diet. Patient has been out of bed. REVIEW OF SYSTEMS: Done for constitutional, cardiovascular, GI, pulmonary; relevant findings as above. MEDICATIONS: Current medications are reviewed. PHYSICAL EXAMINATION: On examination, temperature 98.3 pulse 66, respiration 17, blood pressure 102/63, pulse ox 97% on room air. GENERAL APPEARANCE: Sitting up in a chair, comfortable. EYES: Pupils equal. Conjunctivae normal. NECK: JVD not raised. Mass not palpable. RESPIRATORY: Effort normal. Lungs are clear. CARDIOVASCULAR: First and second sounds normal. No edema. ABDOMEN: Soft, nontender. Liver and spleen not palpable. PSYCHIATRY: Alert and oriented x3. Mood and affect normal. CHEST WALL: Dressing in place. INVESTIGATIONS: Accu-Cheks 361, 348, 288. ASSESSMENT: 1. Bilateral mastectomy, right axillary node dissection and sentinel node biopsy for breast cancer. 2. Diabetes mellitus type 2, chronically on insulin uncontrolled with hyperglycemia. 3. Gastroesophageal reflux disease. 4. Hyperlipidemia. 5. Essential hypertension. 6. Primary osteoarthritis. 7. Irritable bowel syndrome. 8. Obesity; body mass index 37.7. 9. Anxiety and depression, not otherwise specified. PLAN: At this point we will increase the patient's NovoLog 70/30, thirty units with breakfast and supper and add 10 units for lunch. Follow closely. MMODL / IJN: [id number] /
[2018-09-28 07:06] LABS: Glucose,Whole Blood 270 mg/dL (75-99)
[2018-09-28] MEDS ORDERED: INSULN ASP PRT/INSULIN ASPART 100 UNIT/ML 10 ML VIAL SQ SCH ×2 (07:30→12:30)
[2018-09-28 07:38] VITALS: BP 116/65; PULSE 71; RESP 16; TEMP 98.6
--- NOTE | 2018-09-28 07:46 | P.PN ---
Subjective Progress Note Date: 09/28/18 Principal diagnosis: Invasive right breast cancer Edyta is a 68-year-old white female who is postop day #2 from bilateral mastectomy with right axillary node dissection. She is a known diabetic and postprocedure she was hyperglycemic. Her most recent hemoglobin was 9.8. One of her BRIGITTE drains on the left side anteriorly was noted to not be holding suction well. After obtaining consent the insertion site was reinforced with a suture. The patient at this time is doing well and all drains are holding suction with no difficulty. Output from the drains is serous in nature. Left lateral chest drained 20 mL, left medial chest strain 2 mL. Right lateral chest strain 30 mL, right medial chest drained 20 mL. All drainage is serous. The patient states that she slept well last night. The patient's most recent glucose is 270. Objective - Vital Signs Vital signs: Vital Signs Temp 98.6 F 09/28/18 07:00 Pulse 71 09/28/18 07:00 Resp 16 09/28/18 07:00 BP 116/65 09/28/18 07:00 Pulse Ox 95 09/28/18 07:00 Intake & Output 09/27/18 09/28/18 09/28/18 18:59 06:59 18:59 Intake Total 935 1240 Output Total 72 Balance 935 1168 Intake: Intake, IV Titration 1000 Amount Dextrose 5%-0.45% NaCl 1, 1000 000 ml @ 100 mls/hr IV . Q10H MILLY Rx#:[id number] Oral 935 240 Output: Drainage 72 Left Lateral Chest 20 Left Medial Chest 2 Right Lateral Chest 30 Right Medial Chest 20 Other: # Voids 3 2 - Exam BMI 37.7 - Constitutional General appearance: Present: obese - EENT Eyes: Present: EOMI ENT: Present: hearing grossly normal - Neck Neck: Present: normal ROM - Respiratory Respiratory: bilateral: CTA - Cardiovascular Rhythm: regular Heart sounds: normal: S1, S2 - Gastrointestinal General gastrointestinal: Present: soft - Psychiatric Psychiatric: Present: A&O x's 3, appropriate affect, intact judgment & insight - Additional findings Additional findings: Incisions bilateral chest clean and dry No evidence of any hematoma, no evidence of any infection BRIGITTE drains on frozen section, drainage is serous in nature - Labs CBC & Chem 7: 09/27/18 06:56 Labs: Abnormal Lab Results - Last 24 Hours (Table) 09/27/18 09/27/18 09/27/18 Range/Units 06:56 06:56 11:36 RBC 3.72 L (3.80-5.40) m/uL Hgb 9.8 L (11.4-16.0) gm/dL Hct 30.5 L (34.0-46.0) % POC Glucose (mg/dL) 348 H (75-99) mg/dL Hemoglobin A1c 7.7 H (4.0-6.0) % 09/27/18 09/27/18 09/28/18 Range/Units 17:03 20:29 06:54 RBC (3.80-5.40) m/uL Hgb (11.4-16.0) gm/dL Hct (34.0-46.0) % POC Glucose (mg/dL) 288 H 286 H 270 H (75-99) mg/dL Hemoglobin A1c (4.0-6.0) % Assessment and Plan Assessment: Impression/plan: 1. T4 N1 M0 ER SD positive HER-2/teena negative grade 1 right breast cancer 2. Diabetes 3. Irritable bowel syndrome 4. Hyperlipidemia 5. BRCA1 testing negative 6. Positive family history of cancer 7. At this time the patient has no evidence of metastatic disease via PET scan 8. Postoperative day #2 bilateral mastectomy with right axillary node dissection Plan: 1. Right breast mastectomy with sentinel node biopsy possible axillary node dissection POD #2 2. Left mastectomy POD #2 3. All drains: Suction with no difficulty drainage serous in nature 4. Case discussed with Dr. Butler regarding glucose 5. Discharge home to be followed as an outpatient
--- NOTE | 2018-09-28 07:52 | P.DS ---
Providers Date of admission: 09-26-18 Expected date of discharge: 09/28/18 Attending physician: Khushboo Evans Consults: 09/26/18 13:29 Consult Physician Routine Consulting Provider: Lane Butler Consult Reason/Comments: medical managment Do you want consulting provider notified?: Yes Primary care physician: [facility] Course: Melita a 68-year-old white female who was admitted on [id number]. She underwent a bilateral mastectomy with right axillary node dissection. Postprocedure she was noted to have an elevated glucose and was followed in consultation by medicine Dr. Butler. Additionally one of her BRIGITTE drains is not holding suction well and after informed consent the suture was placed at the entrance site closing somewhat patulous opening and affording good suction for the drain. At the time of discharge all drains were holding suction well. She has no evidence of any infection or hematoma. Her latest glucose was 270, this was discussed with medicine and will be followed by medicine/primary care physician upon discharge. The patient has done well post operatively. Her pain is under control. Plan - Discharge Summary Discharge Rx Participant: Yes New Discharge Prescriptions: No Action busPIRone HCl [Buspar] 15 mg PO TID Lisinopril [Zestril] 20 mg PO DAILY DULoxetine HCL [Cymbalta] 60 mg PO DAILY Ranitidine HCl [Zantac] 150 mg PO BID Atorvastatin [Lipitor] 40 mg PO DAILY glipiZIDE [Glucotrol] 5 mg PO DAILY traZODone HCL 150 mg PO HS Dicyclomine [Bentyl] 20 mg PO QID Insulin Lispro Protamin/Lispro [humaLOG Mix 75-25 Kwikpen] 26 unit SQ BID Discharge Medication List Atorvastatin [Lipitor] 40 mg PO DAILY 04/22/17 [History] DULoxetine HCL [Cymbalta] 60 mg PO DAILY 04/22/17 [History] Lisinopril [Zestril] 20 mg PO DAILY 04/22/17 [History] Ranitidine HCl [Zantac] 150 mg PO BID 04/22/17 [History] busPIRone HCl [Buspar] 15 mg PO TID 04/22/17 [History] glipiZIDE [Glucotrol] 5 mg PO DAILY 05/30/17 [History] traZODone HCL 150 mg PO HS 07/07/18 [History] Dicyclomine [Bentyl] 20 mg PO QID 09/13/18 [History] Insulin Lispro Protamin/Lispro [humaLOG Mix 75-25 Kwikpen] 26 unit SQ BID 09/13/18 [History] Follow up Appointment(s)/Referral(s): Khushboo Evans MD [STAFF PHYSICIAN] - 1 Week Activity/Diet/Wound Care/Special Instructions: [facility] [phone] Care Plan Goals (MU): teach drain care wear chest support at all times unless in shower may shower tomorrow do not drive until seen by Dr. Benedict Discharge Disposition: HOME SELF-CARE
[2018-09-28] MEDS: HEPARIN SODIUM,PORCINE 5,000 UNIT/ML 1 ML VIAL SQ SCH (08:21)
[2018-09-28] MEDS: busPIRone HCl 10 MG TAB PO SCH (08:22)
[2018-09-28] MEDS: DICYCLOMINE 10 MG CAP PO SCH ×2 (08:22→13:11)
[2018-09-28] MEDS: DULoxetine HCL 60 MG CAPSULE.DR PO SCH (08:22)
[2018-09-28] MEDS: glipiZIDE 5 MG TAB PO SCH (08:22)
[2018-09-28] MEDS: FAMOTIDINE 20 MG TAB PO SCH (08:22)
[2018-09-28] MEDS: ATORVASTATIN 40 MG TAB PO SCH (08:22)
[2018-09-28] MEDS: INSULIN ASPART (NovoLOG) 100 UNIT/ML VIAL SQ SCH ×2 (08:22→13:12)
[2018-09-28] MEDS: LISINOPRIL 20 MG TAB PO SCH (08:23)
[2018-09-28 11:46] LABS: Glucose,Whole Blood 238 mg/dL (75-99)
--- NOTE | 2018-09-29 06:20 | PN ---
PROGRESS NOTE DATE OF SERVICE: 09/28/2018 PRESENTING COMPLAINT: Bilateral mastectomy. INTERVAL HISTORY: The patient is status post bilateral mastectomy, doing well. Sugars were running high. Dose of Novolin 70/30 was adjusted. This was discussed with the patient. Otherwise, patient is stable. REVIEW OF SYSTEMS: Done for constitutional, cardiovascular, GI, pulmonary; relevant findings as above. CURRENT MEDICATIONS: Current medications are reviewed. PHYSICAL EXAMINATION: On examination, temperature 98.6 pulse 71, respirations 16, blood pressure 116/65, pulse ox 95% on room air. GENERAL APPEARANCE: Sitting up in a chair, comfortable. EYES: Pupil equal. Conjunctivae normal. NECK: JVD not raised. Mass not palpable. RESPIRATORY: Effort normal. LUNGS: Fair entry. CARDIOVASCULAR: First and second sounds normal. No edema. ABDOMEN: Soft, nontender. Liver and spleen not palpable. PSYCHIATRY: Alert and oriented x3. Mood and affect normal. INVESTIGATIONS: Accu-Cheks 270, 238. ASSESSMENT: 1. Bilateral mastectomy, right axillary node dissection and sentinel node biopsy for breast cancer. 2. Diabetes mellitus type 2, chronically on insulin, uncontrolled with hyperglycemia. 3. Gastroesophageal reflux disease. 4. Hyperlipidemia. 5. Essential hypertension. 6. Primary osteoarthritis. 7. Irritable bowel syndrome. 8. Obesity; body mass index 37.7. 9. Anxiety and depression, not otherwise specified. PLAN: Patient to go home with a dose of NovoLog 70/30 as adjusted yesterday. This was discussed with the patient. Questions were answered. Patient should follow up with her family doctor shortly. Thank you Dr. Christianne Evans. OCTAVIA / KENN: [id number] /
== END 2018-09-28 14:45 | disposition home or self-care (01) ==
LOC: OR 06:28 → 4SSUR 14:24 → OR 09-28 14:45
PROVIDERS: ATTEND Surgery
DX: C50.911 Malignant neoplasm of unspecified site of right female breast (principal); C77.3 Secondary and unspecified malignant neoplasm of axilla and upper limb lymph nodes; E11.65 Type 2 diabetes mellitus with hyperglycemia; E66.9 Obesity, unspecified; Z68.37 Body mass index [BMI] 37.0-37.9, adult; E78.5 Hyperlipidemia, unspecified; F41.9 Anxiety disorder, unspecified; F32.9 Major depressive disorder, single episode, unspecified; I10 Essential (primary) hypertension; K21.9 Gastro-esophageal reflux disease without esophagitis; M19.049 Primary osteoarthritis, unspecified hand; K58.9 Irritable bowel syndrome, unspecified; Z80.3 Family history of malignant neoplasm of breast; Z80.49 Family history of malignant neoplasm of other genital organs; Z98.51 Tubal ligation status; Z79.4 Long term (current) use of insulin; Z79.899 Other long term (current) drug therapy; Z88.8 Allergy status to other drugs, medicaments and biological substances
CPT/HCPCS: 19307; 19303; 85025 ×2; 88331; 88307; 88309; 83036; 38792; A9520; J2250; J1644 ×3; J1100; J2405; J2001; J3010; J1170; J0690; J0330; J2704

== ENCOUNTER → 2018-10-06 | Outpatient (CLI) | payer MEDICARE ==
[2018-10-06 12:41] VITALS: BP 128/47; PULSE 70; RESP 16; TEMP 97.5; BMI 36.2
--- NOTE | 2018-10-06 13:21 | P.PN ---
Progress Note - Text Progress Note Date: 10/06/18 Stage IIIA right breast cancer Josey is a 68-year-old white female status post bilateral mastectomy and right axillary node dissection. Pathology revealed a [id number]+Her2-Grade1. There were 2 out of 7 lymph nodes positive in the axilla. The tumor posteriorly extended to the posterior margin which was right on the pectoralis muscle. The patient postoperatively has no complaints. She is doing well at this time. Her drains have more drainage done with Dakin be removed today. Physical exam: Lungs: Clear Heart: Regular rate and rhythm Incisions: Clean and dry, drain sites without evidence of any infection Impression: [id number]/Pr+her2-Grade 1 right breast cancer, Stage IIIA 2. Patient with positive posterior margin which is on the pectoralis muscle 3. Patient doing well postoperatively Plan: 1. Follow up with medical oncology 2. Follow-up with radiation oncology 3. Be present case at tumor board 4. leave drains in place until next week CC: Dr. Flores, Khushboo Forman
== END | disposition home or self-care (01) ==
LOC: WWCWWP 12:28
PROVIDERS: ATTEND Surgery
DX: Z53.9 Procedure and treatment not carried out, unspecified reason (principal)

== ENCOUNTER → 2018-10-12 | Outpatient (CLI) | payer MEDICARE ==
[2018-10-12 12:56] VITALS: BP 115/69; PULSE 80; RESP 20; TEMP 98.3; BMI 36.2
--- NOTE | 2018-10-12 13:31 | P.PN ---
Subjective Progress Note Date: 10/12/18 Care is a 68-year-old white female status post right mastectomy with right axillary node dissection, and left simple mastectomy on . Pathology revealed a T4 N1 M0 ER/MD positive HER-2/teena -, Grade1 right breast cancer. The tumor was multicentric. The patient had a 4 Rishi-Thurston drains placed. 3 of them are ready for removal at this time. The right lateral drain will remain in place. The other 3 according to be removed. The patient states that the drains have become irritating to her. She otherwise is not complaining of anything. Objective - Vital Signs Vital signs: Vital Signs Temp 98.3 F 10/12/18 12:51 Pulse 80 10/12/18 12:51 Resp 20 10/12/18 12:51 BP 115/69 10/12/18 12:51 Pulse Ox 96 10/12/18 12:51 Intake & Output 10/11/18 10/12/18 10/12/18 18:59 06:59 18:59 Weight 89.811 kg - Constitutional General appearance: Present: obese - EENT Eyes: Present: EOMI ENT: Present: hearing grossly normal - Neck Neck: Present: normal ROM - Respiratory Respiratory: bilateral: CTA - Cardiovascular Rhythm: regular Heart sounds: normal: S1, S2 - Psychiatric Psychiatric: Present: A&O x's 3, appropriate affect, intact judgment & insight - Additional findings Additional findings: Examination of the right chest wall incision reveals it to be clean and dry in the lateral aspect near the BRIGITTE drain is some mild erythema the most lateral BRIGITTE drain will be left in place the drainage from this is serous in nature The left chest wall reveals the incision to be clean and dry and inferior aspect appears to be a fungal infection started and some mild irritation at the drain sites as well. All drainage is serous in nature, both left BRIGITTE drains are going to be removed. Assessment and Plan Assessment: Impression: 1. [id number]/MD+Her2-Grade 1, right breast cancer 2. Skin change inferior to left chest wall incision/probable fungal infection 3. Mild erythema at drain sites Plan: 1. 3 drains to be removed the most lateral right breast drain is going to be left 2. Nystatin 3. Keflex 4. Follow up proximally 1 week J5. Appointment medical oncology 6. Appointment radiation oncology Cc: Dr. Flores
== END | disposition home or self-care (01) ==
LOC: WWCWWP 12:41
PROVIDERS: ATTEND Surgery
DX: Z53.9 Procedure and treatment not carried out, unspecified reason (principal)

== ENCOUNTER → 2018-10-25 | Outpatient (CLI) | payer MEDICARE ==
[2018-10-25 12:59] VITALS: BP 130/61; PULSE 74; RESP 16; TEMP 97.4; BMI 32.9
--- NOTE | 2018-10-25 15:34 | PCN ---
cc: Khushboo Evans MD~ Date of Procedure: 10/25/18 Preoperative Diagnosis: Seroma left mastectomy site Postoperative Diagnosis: same Procedure(s) Performed: Drainage of seroma Surgeon: Khushboo Evans Pathology: none sent Condition: stable Disposition: same day Indications for Procedure: Seroma left mastectomy site Operative Findings: 90 CC seroma fluid drained Description of Procedure: The risks and benefits of the procedure were discussed with the patient. Following informed consent the area on the left chest wall was cleaned using alcohol. An 18-gauge needle on a 60 mL syringe was utilized to aspirate the seroma on the left chest wall. The needle was inserted into the area of fullness on the chest wall and approximately 90 mL of straw-colored fluid was removed. There was resolution of the fullness of the area of the chest wall. The patient tolerated the procedure with no difficulty. Sterile dressing was applied. The BRIGITTE on the right was removed. An Negrito wrap was applied. Cc: Dr. Mark RANGEL
--- NOTE | 2018-10-25 15:38 | PN ---
Progress Note - Text Progress Note Date: 10/25/18 Edyta is a 68-year-old white female who is status post bilateral mastectomies on 09-26-18. Pathology revealed sentinel node #1 positive for metastatic adenocarcinoma. She underwent a right breast invasive moderately differentiated infiltrating ductal adenocarcinoma involving the dermis and microscopically the plaque inked posterior margin. The resection was to the pectoralis muscle. The patient's had 7 lymph nodes total removed into which were positive for malignancy. The tumor was multifocal with at least 5 foci in the individual foci measuring between 5.5 cm and 0.4 cm in greatest dimension. The lesion was a grade 2 lesion. This was Her 2 (-), Grade 2, ER+, TX+, prior surgical intervention a biopsy of the skin did reveal invasion of the tumor into the skin. The patient presents today for removal of her last BRIGITTE drain. The apical from the BRIGITTE drain is less than 20 mL per day for the last several days. Additionally she was noted to have some swelling of the left chest wall. This is consistent with a seroma. There is some mild erythema at this site. She previously had changes which appeared to be a fungal infection inferior to the incisions and was treated with nystatin and this has resolved. The patient has no complaints otherwise related to her incisions. The patient was seen by Dr. Trimble, she was counseled regarding chemotherapy, and opted to forego chemotherapy and be treated with hormonal therapy. She will additionally have radiation therapy. Physical examination: lungs: clear heart: regular rate and rythem incisions: No chest wall clean and dry BRIGITTE drain serous fluid minimal output Left chest wall incision clean and dry seroma is present Impression: 1. Status post bilateral mastectomy for a T4 and 1, 0 ERP a positive HER-2 negative grade 2 right breast cancer 2. Decreased vision requiring cataract surgery 3. Patient has seen medical oncology and will make a decision regarding chemotherapy, she will take hormonal therapy 4. Patient therapy in the near future Plan: 1. Patient to decide regarding chemotherapy versus primary hormonal therapy 2. Follow up with radiation therapy 3. BRIGITTE drain to be removed 4. We have discussed aspiration of seroma left chest wall patient has agreed to this 5. Continue antibiotic therapy for mild erythema left mastectomy incision 6. Follow-up. 2 weeks Cc: Dr. Mark RANGEL
--- NOTE | 2018-10-27 13:48 | P.PN ---
Progress Note - Text Progress Note Date: 10/27/18 Edyta is a 68-year-old white female status post bilateral mastectomy with a right axillary [place] [id number]. Pathology revealed a T4 N1 M0 ER+MD+Her2- grade 2 right breast cancer. The left breast was negative for cancer. She had 2 of 7 lymph nodes involved with tumor. The patient postoperatively is doing well. She presents today for removal of her right breast drain. The operative has been less than 20 mL/day for several days in a row. The patient is not complaining of any fever or chills. She has not complain of anything related to her breasts. She has seen medical oncology and will most likely decline chemotherapy. She will be treated with hormonal therapy. She will also be seen for radiation therapy. Physical exam: Lungs: Clear Heart: Regular rate and rhythm Incisions: Clean and dry bilaterally The left incision is clean and dry however there was noted to be a seroma present patient wishes to have seroma drained Impression: 1. Drainage of seroma left chest wall 2. Follow-up 2 weeks 3. Follow-up with medical oncology 4. Follow-up with radiation oncology Cc: Dr. Flores
== END | disposition home or self-care (01) ==
LOC: WWCWWP 12:32
PROVIDERS: ATTEND Surgery
DX: Z53.9 Procedure and treatment not carried out, unspecified reason (principal)

== ENCOUNTER → 2018-11-17 | Outpatient (CLI) | payer MEDICARE ==
[2018-11-17 12:17] VITALS: BP 146/75; PULSE 77; RESP 16; TEMP 97.8; BMI 35.1
--- NOTE | 2018-11-17 12:32 | P.PN ---
Subjective Progress Note Date: 11/17/18 Principal diagnosis: Edyta is a 68-year-old white female who is status post bilateral mastectomies and [id number]. Pathology revealed sentinel node #1 positive for metastatic adenocarcinoma. Right breast had invasive moderately differentiated infiltrating ductal adenocarcinoma involving the dermis and microscopically the posterior margin. The dissection of the risks of the pectoralis muscle. The patient had 7 lymph nodes were removed 2 of which were positive for malignancy. The tumor was multifocal with at least 5 foci and the largest measuring 5.5 cm. The lesion was grade 2. Was ER/[place] positive and HER-2/teena negative. The patient had no cancer noted in the left breast. The patient has had her BRIGITTE drains are removed and is here for evaluation subsequent to the removal of the drains. On her last visit a seroma was aspirated from the left mastectomy site. At this t perla the patient is doing well without complaints. At this time there is no new seroma. Objective - Vital Signs Vital signs: Vital Signs Temp 97.8 F 11/17/18 12:14 Pulse 77 11/17/18 12:14 Resp 16 11/17/18 12:14 BP 146/75 11/17/18 12:14 Pulse Ox 99 11/17/18 12:14 Intake & Output 11/16/18 11/17/18 11/17/18 18:59 06:59 18:59 Weight 87.09 kg - Exam BMI 35.1 - Constitutional General appearance: Present: obese - EENT Eyes: Present: EOMI ENT: Present: hearing grossly normal - Neck Neck: Present: normal ROM - Respiratory Respiratory: bilateral: CTA - Cardiovascular Rhythm: regular Heart sounds: normal: S1, S2 - Musculoskeletal Musculoskeletal: Present: gait normal - Psychiatric Psychiatric: Present: A&O x's 3, appropriate affect, intact judgment & insight - Additional findings Additional findings: Examination chest wall: Right chest wall: No evidence of recurrent cancer, no seroma, incision clean and dry and well healed Left chest wall: No evidence of seroma or infection incision clean and dry well- healed Assessment and Plan Assessment: Impression: 1. Patient status post bilateral mastectomy Right side IIIB, left no cancer 2. no seroma at this time Plan: 1. Can continue to follow with medical oncology for hormonal therapy 2. Radiation therapy as per radiation oncology 3. Follow-up here in 4 months Cc: Dr. Flores
== END ==
LOC: WWCWWP 11:56
PROVIDERS: ATTEND Surgery
DX: Z53.9 Procedure and treatment not carried out, unspecified reason (principal)

== ENCOUNTER → 2019-03-16 | Outpatient (CLI) | payer MEDICARE ==
[2019-03-16 11:37] VITALS: BP 116/71; PULSE 82; RESP 18; TEMP 98.1; BMI 34.2
--- NOTE | 2019-03-16 11:58 | P.PN ---
Subjective Progress Note Date: 03/16/19 Principal diagnosis: survelience for breast cancer, back pain Stage IIIB [id number] ER/[place] +, HER-2- The patient is a 68 year old white female who initially noted her right nipple was cracked and bleeding for about one year. She had been prescribed antibiotic creams on multiple occasions without resolution of the problem. She couldn't see because she had difficulty with vision, and after she underwent cataract surgery and she noticed what her nipple looked like and then sought a mammogram. The mammogram was noted to have a 1.8 cm lesion behind the nipple. The patient when ween initially noted the whole breast felt hard at that time. She is status post bilateral mastectomy; the cancer was on the right side. She had 2 of 7 lymph nodes positive and also the deep posterior margin. The bilateral mastectomy was performed on 09-26-18. She just completed radiation therapy of the right chest wall on [id number]. She declined chemotherapy. She is presently taking letrazole. She has noticed some sweats related to the left resolved. She also complains of some fatigue. The patient states that she developed burn to her right chest wall with the radiation therapy. That is improved at the present time but still sore. The patient is complaining of back pain. She has not had a PET scan performed. She states when she tries to walk that she gets pain in her mid back. It is worse with walking. She also complains of some swelling in her right upper arm. Family History: 1. sister: breast cancer in her 30's/ recently diagnosed with endometrial cancer 2. paternal grandmother: breast cancer 3. patient: right breast Stage IIIB cancer Hormonal History: menarche: 11 : 2, 2 children 1 , first born at age of 31, breast feed: no menopause: 42 BCP:20 years hormones: no Past Surgical History: 1. cataract surgery 2. tualigation 3. Bilateral mastectomy with right axillary node removal Past Medical Hsitory: 1. diabetes 2. hyperlipidemea 3. IBS 4. arthritis Social History: smoke: no alcohol: no drugs: no - Constitutional Constitutional: Reports sweats - EENT Comment: cataracts bilateral Ears: bilateral: tinnitus, deny: decreased hearing Ears, nose, mouth and throat: Denies headache, Denies sore throat - Breasts Breasts: bilateral: as per HPI - Cardiovascular Cardiovascular: Denies chest pain, Denies shortness of breath - Respiratory Respiratory: Denies cough, - Gastrointestinal Comment: IBS - Genitourinary (Female) Genitourinary: Denies dysuria, Denies hematuria - Menstruation Menstruation: Reports postmenopausal - Musculoskeletal Comment: back pain arthritis - Integumentary Integumentary: Denies pruritus, Denies rash - Neurological Neurological: Denies numbness, Denies weakness - Psychiatric Psychiatric: Reports anxiety, Reports depression - Endocrine Comment: diabetes - Hematologic/Lymphatic Comment: aspirin - Allergic/Immunologic Allergic/Immunologic: Reports seasonal allergies Past Medical History Past Medical History: Diabetes Mellitus, Hyperlipidemia Additional Past Medical History / Comment(s): IBS, History of Any Multi-Drug Resistant Organisms: None Reported Past Surgical History: Tubal Ligation Additional Past Surgical History / Comment(s): left cataract 04/27/17 Past Anesthesia/Blood Transfusion Reactions: Postoperative Nausea & Vomiting (PONV) Smoking Status: Never smoker Objective - Vital Signs Vital signs: Intake & Output 03/15/19 03/16/19 03/16/19 18:59 06:59 18:59 Weight 84.822 kg - Exam BMI 34.2 - Constitutional General appearance: Present: obese - EENT Eyes: Present: EOMI, poor dentition ENT: Present: hearing grossly normal - Neck Neck: Present: normal ROM - Respiratory Respiratory: bilateral: CTA - Cardiovascular Rhythm: regular Heart sounds: normal: S1, S2 - Gastrointestinal General gastrointestinal: Present: soft - Integumentary Integumentary: Present: normal turgor - Musculoskeletal Musculoskeletal Comment(s): uses a waking stick, kyphosis Patient with no definite swelling in her right upper extremity - Psychiatric Psychiatric: Present: A&O x's 3, appropriate affect, intact judgment & insight - Additional findings Additional findings: chest wall: Right chest wall incision clean and dry no evidence of recurrent cancer Right axilla: No adenopathy of concern Left chest wall: Incision clean and dry no evidence of disease Left axilla: No adenopathy of concern Assessment and Plan Assessment: Impression: 1. Patient status post bilateral mastectomy for right breast stage IIIB cancer, she was also treated with radiation therapy and left resolved 2. Patient complaining of back pain patient "gives out" when she tries to walk 3. Patient on l with hot letrazole flashes 4. Family history of breast cancer 5. Family history of endometrial cancer 6. Diabetes 7. Irritable bowel syndrome 8. Hyperlipidemia 9. Patient complaining of some fullness in her right upper extremity Plan: 1. PET scan to evaluate for bony pain 2. Continue letrozole and continue to follow with medical oncology 3. Continued follow-up with radiation oncology 4. Follow here after PET scan performed 5. Medical management of medical conditions 6. Patient to have arm measured for lymphedema Cc: Dr. Flores
== END ==
LOC: WWCWWP 11:18
PROVIDERS: ATTEND Surgery
DX: Z53.9 Procedure and treatment not carried out, unspecified reason (principal)

== ENCOUNTER → 2019-04-02 | Outpatient (CLI) | payer MEDICARE ==
--- NOTE | 2019-04-02 14:49 | NM ---
EXAMINATION TYPE: NM bone scan whole body DATE OF EXAM: 04/02/2019 COMPARISON: PET CT scan 07/22/2018 HISTORY: Breast cancer Delayed whole-body scanning was performed following the injection of 23.1 mCi Tc 99m MDP. Images acq uired 3 hours post injection. FINDINGS: There is a intermediate intensity uptake proximal level of T10 which is linear may represen t an area of compression fracture. Mild increased uptake involving the mid thoracic spine likely dege nerative. No suspicious uptake seen. Faint uptake involving the right greater trochanter of the adenopathy in t he basis of trochanteric bursitis. Nonspecific heterogeneous uptake involving the rib cage posteriorl y. IMPRESSION: 1. Linear intermediate intensity uptake involving the mid to lower thoracic spine could be degenerati ve or on the basis of a previous compression fracture and x-ray correlation is recommended. Metastati c lesion not excluded. 2. Heterogeneous uptake involving the rib cage posteriorly x-ray correlation.
== END | disposition home or self-care (01) ==
LOC: RADNMMAIN 09:59
PROVIDERS: ATTEND Surgery
DX: C50.911 Malignant neoplasm of unspecified site of right female breast (principal); R93.7 Abnormal findings on diagnostic imaging of other parts of musculoskeletal system; M54.6 Pain in thoracic spine; Z90.13 Acquired absence of bilateral breasts and nipples
CPT/HCPCS: 78306; A9503

== ENCOUNTER → 2019-04-06 | Outpatient (CLI) | payer MEDICARE ==
--- NOTE | 2019-04-06 14:52 | XR ---
EXAMINATION TYPE: XR chest 2V DATE OF EXAM: 04/06/2019 COMPARISON: PET/CT 07/23/2018 HISTORY: Low back pain, breast cancer TECHNIQUE: Frontal and lateral views of the chest are obtained. FINDINGS: There is no focal air space opacity, pleural effusion, or pneumothorax seen. The cardiac silhouette size is within normal limits. There is a large oval eggshell type calcification in the ri ght upper quadrant measuring 6.4 x 4.5 x 4.2 cm with a smaller adjacent calcification measuring appro ximately 16 mm. The osseous structures are intact. IMPRESSION: No acute cardiopulmonary process. Findings of porcelain gallbladder.
--- NOTE | 2019-04-06 14:57 | XR ---
Thoracic spine HISTORY: Pain, breast cancer 3 views of the thoracic spine, correlation to bone scan 04/02/2019. There is multilevel spondylosis. Thoracic vertebral bodies show preserved height and alignment, bone mineralization. There is loss of disc height at the intervertebral disc levels of T9-10, T8-9 with as sociated vacuum phenomenon. Changes of porcelain gallbladder noted. IMPRESSION: Abnormal findings on bone scan likely due to degenerative disc disease.
== END | disposition home or self-care (01) ==
LOC: RADXRMAIN 12:33
PROVIDERS: ATTEND Surgery
DX: R93.7 Abnormal findings on diagnostic imaging of other parts of musculoskeletal system (principal); Z85.3 Personal history of malignant neoplasm of breast
CPT/HCPCS: 71046; 72072

== ENCOUNTER → 2019-07-05 | Outpatient (CLI) | payer MEDICARE ==
[2019-07-05 11:30] VITALS: BP 101/48; PULSE 67; RESP 18; TEMP 98.2
--- NOTE | 2019-07-05 12:01 | P.PN ---
Subjective Progress Note Date: 07/05/19 Principal diagnosis: Stage IIIB right breast cancer/06-19-18 Edyta is a 69-year-old white female who is status post bilateral mastectomy. She had a right breast cancer stage IIIB invasive ductal carcinoma. This was T4b N0, M0, G1, HER-2 negative, ER positive, UT positive clinically and post operative she was noted to have 2/7 nodes positive and a deep margin which was on muscle positive. Postoperatively the patient has been on E is out. She did not have chemotherapy. She also underwent adjuvant radiation therapy finishing on . The patient has had a long history of back pain even before the diagnosis of the breast cancer. However was brought to our attention in the fall of 2018 and she underwent a bone scan on [id number]. This revealed questionable lesion in the lower thoracic spine as well as some questionable uptake in the rib cage. Additional x-rays including a chest x-ray and thoracic spine films were obtained. These reveal degenerative disc disease. The chest x-ray also revealed a porcelain gallbladder. The patient additionally had an MR I of her back performed these results are pending. Patient continues to complain of discomfort bilaterally in her chest wall where her drains had been placed. The pain appears to be intermittent. It is worst with pressure. Does not spread any place. The pain is described as sharp in nature. She does not complain any lumps masses or nodules in her breast. The discomfort in her back has not changed. Again this was present prior to her diagnosis of breast cancer. The patient continues to be on letrozole. She does have intermittent episodes of hot flashes. She also complains of some depression. The patient was seen by Dr. Murray earlier today. On chest x-ray she was noted to have a porcelain gallbladder. She is scheduled for laparoscopic cholecystectomy. The patient is not complaining of any swelling in her arms at this time. She was offered to see a lymphedema specialist prior and she declined. Family history: 1. sister: Breast cancer in her 30s recently diagnosed with endometrial cancer, treated for lymphedema 2018 2. Paternal grandmother: Breast cancer History: Menarche: 11 first live at 31, did not breast-feed Menopause: 42 control pills: 20 years Hormones: Negative Past surgical history: 1. Cataract surgery 2. Tubal ligation 3. Bilateral mastectomy with right axillary node dissection Medical history: 1. Diabetes 2. Hyperlipidemia 3. Irritable bowel syndrome 4. Back pain Social history: Smoke: Negative Alcohol: Negative Drugs: Negative Review of systems: HEENT: Bilateral cataracts surgery, bilateral tinnitus Breasts: As stated in HPI Cardiovascular: Negative Mesentery: Negative GI: Irritable bowel syndrome : Postmenopausal Musculoskeletal: Back pain/arthritis Integument: Positive biopsy for skin cancer Neurologic: Denies numbness or weakness Psychiatric: Depression Hematologic: Negative Objective - Vital Signs Vital signs: Intake & Output 07/04/19 07/05/19 07/05/19 18:59 06:59 18:59 Weight 89.358 kg - Exam BMI 36 - Constitutional General appearance: Present: obese - EENT Eyes: Present: EOMI, poor dentition ENT: Present: hearing grossly normal - Neck Details: no adenopathy of concern Neck: Present: normal ROM Thyroid: bilateral: normal size - Respiratory Respiratory: bilateral: CTA - Cardiovascular Rhythm: regular Heart sounds: normal: S1, S2 - Gastrointestinal General gastrointestinal: Present: normal bowel sounds, soft - Integumentary Integumentary Comment(s): no swelling of the right arm Integumentary: Present: normal turgor - Musculoskeletal Musculoskeletal Comment(s): The patient complains of discomfort with pressure over the upper chest wall on b oth the right and left side. She properly this might be where the drains have been located however this would be superior and medial to where any drain was then placed. There was no scar tissue at this site there is no palpable abnormality at this site and the pain is most likely musculoskeletal in nature. Musculoskeletal: Present: gait normal - Psychiatric Psychiatric: Present: A&O x's 3, appropriate affect, intact judgment & insight - Additional findings Additional findings: breast exam: inspection: Scars well-healed bilaterally, no evidence of any skin changes which would indicate recurrent cancer Right chest wall skin is more adherent to the underlying muscular structures believed to be partly related to radiation on the right side Right chest wall: The patient does not reveal any subcutaneous nodules of concern Right axilla: No adenopathy of concern Left chest wall: No evidence of any subcutaneous nodules of concern or recurrent disease Left axilla: No adenopathy of concern Assessment and Plan Assessment: Impression: 1. Status post bilateral mastectomy for stage IIIB right breast cancer 2. Status post radiation therapy right chest wall 3. Patient on letrazole 4. No evidence of recurrent breast cancer at this time on the chest wall or axilla 5. Patient complained of back pain and bone scan and radiographs were negative for any metastatic disease 6. MRI performed of the spine results pending 7. Patient will follow with Dr. Trimble next week 8. No lymphedema on today's exam 9. 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 Right lateral chest wall discomfort/most likely musculoskeletal 11. Depression since menopause Plan: 1. Follow up here in 6 months time 2. Obtain results of back MRI 3. Continue letrazole 4. Continue follow-up with Dr. Trimble 5. Cause of discomfort in the chest does not appear to be related to any recurrent cancer/this is at separate sites from where the drains had been present and most likely is musculoskeletal, treated with nonsteroidals 6. Patient scheduled for cholecystectomy secondary to porcelain gallbladder 7. will discuss any association of letrazole with depression CC: Marcela Nair encounter 40 minutes > 50% of time in planning and counselling Time with Patient: Greater than 30
== END | disposition home or self-care (01) ==
LOC: WWCWWP 10:56
PROVIDERS: ATTEND Surgery
DX: Z53.9 Procedure and treatment not carried out, unspecified reason (principal)

== ENCOUNTER → 2019-07-05 | Outpatient (CLI) | payer MEDICARE ==
[2019-07-05 11:07] LABS: Basophils # (A) 0.1 k/uL (0-0.2); Basophils % (A) 1 %; Eosinophils # (A) 0.2 k/uL (0-0.7); Eosinophils % (A) 3 %; HCT 36.9 % (34.0-46.0); HGB 11.7 gm/dL (11.4-16.0); Hypochromasia Slight; Lymphocytes % (A) 14 %; MCHC 31.8 g/dL (31.0-37.0); MCV 84.8 fL (80.0-100.0); Mean Platelet Volume 6.4; Monocytes # (A) 0.4 k/uL (0-1.0); Monocytes % (A) 5 %; Neutrophils # (A) 5.4 k/uL (1.3-7.7); Neutrophils % (A) 75 %; Platelet Count 230 k/uL (150-450); RBC 4.36 m/uL (3.80-5.40); RDW 13.1 % (11.5-15.5); WBC 7.3 k/uL (3.8-10.6)
[2019-07-05 17:21] LABS: African American GFR (CKD) 54.2 (60.0-200.0); Albumin/Globulin Ratio 1.82 (1.60-3.17); Anion Gap 8.4 mmol/L (4.00-12.00); BUN/Creat Ratio 18.33 Ratio (12.00-20.00); Carbon Dioxide 22.6 mmol/L (21.6-31.8); Globulin 2.2 g/dL (1.6-3.3); Non-African American GFR(CKD) 46.7 (60.0-200.0); Potassium 4.8 mmol/L (3.5-5.5); Total Bilirubin 0.3 mg/dL (0.2-1.2); Total Protein 6.2 g/dL (6.2-8.2)
== END | disposition home or self-care (01) ==
LOC: LABWHC1 10:28
PROVIDERS: ATTEND Surgery
DX: K81.1 Chronic cholecystitis (principal)
CPT/HCPCS: 36415; 80053; 85025

== ENCOUNTER 2019-07-27 08:44 | Day surgery (SDC) | payer MEDICARE ==
[2019-07-26 08:57] VITALS: BMI 36.0
[~2019-07-27 08:44] MED LIST changes: -MIDAZOLAM (PF) 2 MG/2 ML VIAL IV PRN; -Pre Op ABX Message 1 EACH MISC MISCELLANE ONE; +SCOPOLAMINE 1.5MG/72HR PATCH TRANSDERM ONE; -fentaNYL (PF) 50 MCG/ML 2 ML AMP IV PRN
[2019-07-27 09:17] LABS: Glucose,Whole Blood 141 mg/dL (75-99)
[2019-07-27] MEDS: MIDAZOLAM 2 MG/2 ML VIAL IV ONE ×2 (09:30→11:38)
[2019-07-27] MEDS ORDERED: ROCURONIUM BROMIDE 10 MG/ML 10 ML VIAL IV ONE (09:50)
[2019-07-27] MEDS ORDERED: LIDOCAINE 1% INJ 10MG/ML (20 ML MDV) ONE (09:50)
[2019-07-27] MEDS ORDERED: fentaNYL (PF) 50 MCG/ML 2 ML AMP ONE (09:50)
[2019-07-27] MEDS ORDERED: SUCCINYLCHOLINE CHLORIDE 100 MG/5 ML SYR IV ONE (09:50)
[2019-07-27] MEDS ORDERED: NEOSTIGMINE 1 MG/ML 10 ML VIAL ONE (09:50)
[2019-07-27] MEDS ORDERED: PROPOFOL 10 MG/ML 20 ML VIAL IV ONE (09:50)
[2019-07-27] MEDS ORDERED: GLYCOPYRROLATE 0.2 MG/ML 2 ML VIAL ONE (09:50)
[2019-07-27] MEDS ORDERED: BUPIVACAINE (PF) 0.25% 30 ML VIAL SQ ONE ×3 (10:13→10:21)
[2019-07-27] MEDS: HYDROmorphone 0.5 MG/0.5 ML SYRINGE IVP PRN ×4 (11:38→12:21)
[2019-07-27 11:42] VITALS: TEMP 97.5
[2019-07-27] MEDS ORDERED: HYDROcodone/APAP 5-325MG 1 EACH TAB PO PRN (11:47)
[2019-07-27] MEDS ORDERED: NALOXONE 0.4 MG/ML 1 ML VIAL IV PRN (11:47)
--- NOTE | 2019-07-27 11:51 | P.OP ---
Date of Procedure: 07/27/19 Procedure(s) Performed: PREOPERATIVE DIAGNOSIS: Chronic cholecystitis, porcelain gallbladder POSTOPERATIVE DIAGNOSIS: Same PROCEDURE: Laparoscopic cholecystectomy SURGEON: Mina EBL: Minimal see anesthesia record ANESTHESIA: Gen. COMPLICATIONS: None OPERATIVE PROCEDURE: The patient was brought and placed on the operating room table in the supine position. The patient was placed under general anesthesia at that time. The abdomen was prepped and draped in the usual sterile fashion. A small vertical infraumbilical incision was made. The fascia was grasped with the Oscar forceps. The fascia was retracted anteriorly. The Veress needle was advanced into the peritoneal cavity. The saline drop test was normal. Insufflation took place up to 15 mmHg. A 5 mm optical trocar was advanced and the peritoneal cavity. 2 additional 5 mm trochars were placed in the right upper quadrant under direct visualization. A 12 mm trocar was advanced into the epigastric incision site. The gallbladder was significantly thickened with some nodularity at the fundus. There was no palpable lumen to the gallbladder. The entire gallbladder appeared calcified. Using the bulldog I grasped the fundus and retracted the gallbladder superiorly. Using a combination of blunt dissection, LigaSure, electrocautery we were able to mobilize the gallbladder more proximally. The infundibulum was visualized. Thankfully the cystic duct appeared free of inflammatory changes. We were able to dissect the cystic duct fairly easily. 2 clips were placed on the patient's side. The adjacent cystic artery was identified and clipped as well. A small vessel was seen along the gallbladder fossa and clipped as well. The gallbladder was then removed from the liver bed using electrocautery. The gallbladder was then removed from the epigastric trocar site with an Endo Catch bag. In order to remove the gallbladder the epigastric incision with lengthened significantly. The gallbladder fossa was irrigated with saline. There was no evidence of any bleeding or biliary drainage seen. The fascia at the 12 millimeter site was closed using a running 0 Vicryl stitch. The trochars were then removed. The skin at all 4 sites was closed using a 4-0 Monocryl stitch. Skin glue was utilized on the incision sites. At the end of this procedure the sponge and needle counts were correct. DISPOSITION: Stable to the recovery room
[2019-07-27 12:12] LABS: Glucose,Whole Blood 226 mg/dL (75-99)
[2019-07-27] MEDS ORDERED: INSULIN ASPART (NovoLOG) 100 UNIT/ML VIAL SQ ONE ×2 (12:23→13:43)
[2019-07-27] MEDS ORDERED: SODIUM CHLORIDE 0.9% 1,000 ML IV ONE (12:41)
[2019-07-27 13:39] LABS: Glucose,Whole Blood 228 mg/dL (75-99)
[2019-07-27 15:16] LABS: Glucose,Whole Blood 210 mg/dL (75-99)
[2019-07-27 15:40] VITALS: BP 144/70; PULSE 77; RESP 20
== END 2019-07-27 16:16 | disposition home or self-care (01) ==
LOC: OR 08:44
PROVIDERS: ATTEND Surgery
DX: K80.10 Calculus of gallbladder with chronic cholecystitis without obstruction (principal); K82.8 Other specified diseases of gallbladder; M19.90 Unspecified osteoarthritis, unspecified site; E11.9 Type 2 diabetes mellitus without complications; I10 Essential (primary) hypertension; E78.5 Hyperlipidemia, unspecified; F41.9 Anxiety disorder, unspecified; K21.9 Gastro-esophageal reflux disease without esophagitis; K58.9 Irritable bowel syndrome, unspecified; F32.9 Major depressive disorder, single episode, unspecified; Z90.13 Acquired absence of bilateral breasts and nipples; Z98.51 Tubal ligation status; Z79.4 Long term (current) use of insulin; Z79.899 Other long term (current) drug therapy; Z88.6 Allergy status to analgesic agent; Z88.8 Allergy status to other drugs, medicaments and biological substances; Z85.3 Personal history of malignant neoplasm of breast; Z98.41 Cataract extraction status, right eye; Z98.42 Cataract extraction status, left eye; Z83.3 Family history of diabetes mellitus; Z82.49 Family history of ischemic heart disease and other diseases of the circulatory system; Z82.3 Family history of stroke; Z80.3 Family history of malignant neoplasm of breast; Z80.49 Family history of malignant neoplasm of other genital organs
CPT/HCPCS: 93005; 88304; 88311; 47562; J2250; J1644; J1100; J2710; J0690; J2405; J2001; J3010; J0330; J2704; J1170

== ENCOUNTER → 2020-04-08 | Outpatient (CLI) | payer MEDICARE ==
--- NOTE | 2020-04-08 15:54 | BD ---
EXAMINATION TYPE: Axial Bone Density DATE OF EXAM: 04/08/2020 COMPARISON: NONE CLINICAL HISTORY: 69 YR OLD FEMALE....ICD-10 CODE: C50.011 BREAST CANCER, Z79.890 POST MENOPAUSE Height: 61.1 Weight: 194 FRAX RISK QUESTIONS: Secondary Osteoporosis: YES 1. Type 1 Diabetes: YES 3. Menopause before 45: YES RISK FACTORS HISTORY OF: Postmenopausal woman: YES AT AGE 42, NATURAL Lost more than 2 inches in height since high school: YES Hyperparathyroidism: NO Adrenal Insufficiency: NO MEDICATIONS: Additional Medications: TRAZODONE, BUSPAR, INSULIN AND ORAL DIABETIC MEDS, RADIATION FOR BREAST CANCE R, REFLUX MEDS IN THE PAST, LIPITOR, Additional History: RT BREAST CANCER WITH BILAT MASTECTOMY, 2019, DIABETIC, CHOLESTEROL, ARTHRITIS, EXAM MEASUREMENTS: Bone mineral densitometry was performed using the ZOCKO System. Bone mineral density as measured about the Lumbar spine is: ----- L1-L4(G/cm2): 1.354 T Score Values are as follows: ----- L1: 1.4 ----- L2: 2.6 ----- L3: 2.2 ----- L4: -0.2 ----- L1-L4: 1.4 Bone mineral density FIRST BONE DENSITY ......BASELINE Bone mineral density about the R hip (g/cm2): 0.989 Bone mineral density about the L hip (g/cm2): 1.001 T Score values are as follows: -----R Neck: -0.8 -----L Neck: -1.2 -----R Total: -0.1 -----L Total: -0.1 Bone mineral density BASELINE STUDY FRAX5s: THERE IS A 8.3% CHANCE FOR A MAJOR OSTEOPOROTIC FX AND A 0.8% FOR HIP.....PROBABILITY FOR F X IN 10 YRS TIME IMPRESSION: Osteopenia (T Score between -2.5 and -1). There is slightly increased risk of fracture and the patient may be considered for treatment. Re-Screen 2-5 years. NOTE: T-SCORE=SD OF THE YOUNG ADULT MEAN.
== END | disposition home or self-care (01) ==
LOC: RADBDWWP 08:02
PROVIDERS: ATTEND Internal Medicine Hematology & Oncology
DX: C50.011 Malignant neoplasm of nipple and areola, right female breast (principal); M85.80 Other specified disorders of bone density and structure, unspecified site; Z79.890 Hormone replacement therapy
CPT/HCPCS: 77080

== ENCOUNTER 2021-12-15 13:37 | Emergency (ER) | payer MEDICARE ==
[2021-12-15 15:03] VITALS: BP 131/56; PULSE 100; RESP 18; TEMP 98.4
--- NOTE | 2021-12-15 15:19 | ED ---
Lower Extremity Injury HPI - General Chief Complaint: Extremity Injury, Lower Stated Complaint: Right Leg Injury Time Seen by Provider: 12/15/21 15:08 Source: patient, RN notes reviewed Mode of arrival: ambulatory Limitations: no limitations - History of Present Illness Initial Comments: This is a 71-year-old female who presents to the emergency department for pain to the right thigh. Patient states that she was moving a couch this morning and subsequently developed the pain. She called her doctor's office who advised she come to the emergency department for x-rays. She has not yet taken anything for the pain, however she is unable to take NSAIDs. She is having difficulty with ambulation due to the pain as well. Denies any fevers, chills, sore throat, cough, dyspnea, chest pain, palpitations, abdominal pain, nausea, vomiting, diarrhea, back pain, or headaches. MD Complaint: thigh injury Injury: Thigh: Right Place: home Worsens With: weight bearing - Related Data Home Medications Medication Instructions Recorded Confirmed Atorvastatin [Lipitor] 40 mg PO QAM 04/22/17 07/26/19 DULoxetine HCL [Cymbalta] 60 mg PO QAM 04/22/17 07/26/19 Ranitidine HCl [Zantac] 150 mg PO BID 04/22/17 07/26/19 busPIRone HCl [Buspar] 15 mg PO TID 04/22/17 07/26/19 lisinopriL [Zestril] 20 mg PO QAM 04/22/17 07/26/19 glipiZIDE [Glucotrol] 5 mg PO DAILY 05/30/17 07/26/19 traZODone HCL 150 mg PO HS 07/07/18 07/26/19 Dicyclomine [Bentyl] 20 mg PO QID 09/13/18 07/26/19 Letrozole 2.5 mg PO QAM 03/16/19 07/26/19 Acetaminophen [Tylenol Arthritis] 650 mg PO DIRECTED PRN 07/26/19 07/26/19 Insulin NPH/Reg Insulin 70/30 26 unit SQ BID 07/26/19 07/26/19 [humuLIN 70/30 VIAL] Previous Rx's Medication Instructions Recorded Hydrocodone/Acetaminophen [[place] 1 tab PO Q6HR PRN 3 Days #10 tab 07/27/19 5-325] Allergies Allergy/AdvReac Type Severity Reaction Status Date / Time ibuprofen [From Motrin] AdvReac Unknown STATES Verified 12/15/21 15:03 TOLD NOT TO TAKE D/T HX OF CATARACTS metformin [From Glucophage] AdvReac Nausea & Verified 12/15/21 15:03 Vomiting & Diarrhea Review of Systems ROS Statement: Those systems with pertinent positive or pertinent negative responses have been documented in the HPI. ROS Other: All systems not noted in ROS Statement are negative. Past Medical History Past Medical History: Cancer, Diabetes Mellitus, Hyperlipidemia, Osteoarthritis (OA) Additional Past Medical History / Comment(s): IBS- CONSTIPATION, SINUS PROBLEMS, CANCER RIGHT BREAST, WHITE COAT SYNDROME-CAUSES HTN. hx one migraines, low blood pressure, History of Any Multi-Drug Resistant Organisms: None Reported Past Surgical History: Breast Surgery, Tubal Ligation Additional Past Surgical History / Comment(s): AYDEE CATARACTS; RIGHT BREAST BX; SKIN LESIONS RIGHT BREAST; AYDEE BREAST MASTECTOMY, RT AXILLARY NODE DISSECTION; "hunchback" Past Anesthesia/Blood Transfusion Reactions: Motion Sickness, Postoperative Nausea & Vomiting (PONV) Additional Past Anesthesia/Blood Transfusion Reaction / Comment(s): can't lay flat on back Past Psychological History: Anxiety, Depression Past Alcohol Use History: None Reported Past Drug Use History: None Reported - Past Family History Sister(s) Family Medical History: Cancer Additional Family Medical History / Comment(s): BREAST & "FEMALE CANCER" General Exam Limitations: no limitations General appearance: alert, in no apparent distress Head exam: Present: atraumatic, normocephalic, normal inspection Respiratory exam: Present: normal lung sounds bilaterally. Absent: respiratory distress, wheezes, rales, rhonchi, stridor Cardiovascular Exam: Present: regular rate, normal rhythm, normal heart sounds. Absent: systolic murmur, diastolic murmur, rubs, gallop, clicks Extremities exam: Present: other (Tender to palpation of the posterior aspect of the right thigh. No swelling or erythema. Ambulation limited secondary to pain. 2+ dorsalis pedis and tibialis posterior pulses bilaterally. Capillary refill less than 1 second bilaterally.) Neurological exam: Present: alert, oriented X3, CN II-XII intact Psychiatric exam: Present: normal affect, normal mood Skin exam: Present: warm, dry, intact, normal color. Absent: rash Course Vital Signs 12/15/21 14:57 Temperature 98.4 F Pulse Rate 100 Respiratory 18 Rate Blood Pressure 131/56 O2 Sat by Pulse 97 Oximetry Medical Decision Making - Medical Decision Making This is a 71 year old female who presents to the emergency department for right lower extremity pain. X-rays were negative. Symptoms and physical exam are most consistent with a muscle strain. Advised she continue to take Tylenol, up to 4g daily for pain. She is also instructed to ice the area for the first 2 days followed by heat there afterwards. Encouraged using an ambulation aid such as a cane or walker as the pain is making it difficult for her to ambulate. Return precautions reviewed in depth, the patient is instructed to return to the emergency department with any new, worsening, or concerning symptoms. Patient verbalized understanding. This case was discussed in detail with the attending ED physician. Presentation, findings, and treatment plan discussed in detail as well. - Radiology Data Radiology results: report reviewed, image reviewed Disposition Clinical Impression: Strain of right hip and thigh Disposition: HOME SELF-CARE Instructions (If sedation given, give patient instructions): Muscle Strain (DC), Hip Sprain (ED) Additional Instructions: Return to the emergency department with any new, worsening, or concerning symptoms. Apply ice for the first 2 days followed by heat there afterwards. Take up to 4000mg of Tylenol each day as needed for pain. Use your cane or a walker for ambulation. Follow up with your primary care provider in 1-2 days. Is patient prescribed a controlled substance at d/c from ED?: No Referrals: Joshua Flores MD [Primary Care Provider] - 1-2 days
--- NOTE | 2021-12-15 15:46 | XR ---
EXAMINATION TYPE: XR femur RT DATE OF EXAM: 12/15/2021 COMPARISON: NONE HISTORY: Pain TECHNIQUE: 2 view submitted FINDINGS: Diffuse osteopenia. No acute fracture or dislocation. Calcification in the pelvis is only p artially included in the [id number] could be on the basis of an uterine fibroid. Correlate clinica lly. IMPRESSION: Diffuse osteopenia
--- NOTE | 2021-12-15 15:47 | XR ---
EXAMINATION TYPE: XR Hip Complete RT DATE OF EXAM: 12/15/2021 COMPARISON: NONE HISTORY: Pain TECHNIQUE: 2 views submitted FINDINGS: There is no evidence of erosive change or acute fracture. Diffuse osteopenia. IMPRESSION: 1. No evidence of acute fracture or dislocation.
[2021-12-15] MEDS ORDERED: ACET/COD 300 MG/30 MG STARTER PACK 6 TAB BTL PO STA (16:18)
== END 2021-12-15 16:50 | disposition home or self-care (01) ==
LOC: EC 13:37
DX: S76.011A Strain of muscle, fascia and tendon of right hip, initial encounter (principal); S76.911A Strain of unspecified muscles, fascia and tendons at thigh level, right thigh, initial encounter; E11.9 Type 2 diabetes mellitus without complications; E78.5 Hyperlipidemia, unspecified; M19.90 Unspecified osteoarthritis, unspecified site; F32.A Depression, unspecified; F41.9 Anxiety disorder, unspecified; Z79.4 Long term (current) use of insulin; Z79.84 Long term (current) use of oral hypoglycemic drugs; Z79.899 Other long term (current) drug therapy; X50.0XXA Overexertion from strenuous movement or load, initial encounter; Y92.009 Unspecified place in unspecified non-institutional (private) residence as the place of occurrence of the external cause
CPT/HCPCS: 73502; 99283